=== PATIENT | female | born 1960 | race Hispanic/Latino ===

== ENCOUNTER 2017-09-30 10:00 | Outpatient (CLI) | payer MEDICARE ==
--- NOTE | 2017-09-30 12:24 | CT ---
CT CHEST WITH IV CONTRAST: Date: 09/30/17 HISTORY: Tobacco use, COPD, shortness of breath. Patient had tumor removed from esophagus in March 2017. FINDINGS: No evidence of mediastinal, hilar, or axillary mass or lymphadenopathy seen. The thoracic aorta is we ll opacified without aneurysm or dissection. No pleural or pericardial effusions are noted. No pulmon halle nodules or masses are seen. There are degenerative changes in the spine. There is prominence of the wall of the esophagus. Upper abdominal tomograms demonstrate a 1.2 cm righ t adrenal nodule. IMPRESSION: 1. Prominence/thickening of the esophageal wall. Evaluation with endoscopy would be helpful. 2. Indeterminate 12.0 mm right adrenal nodule. Dedicated CT scan of the abdomen with and without IV contrast using the adrenal protocol is recommended. POS: [facility]
[2017-09-30] MEDS ORDERED: Iopamidol 370 76% 100 ML VIAL ONE (14:26)
== END 2017-09-30 10:01 | disposition home or self-care (01) ==
LOC: CT 10:00
PROVIDERS: ATTEND Nurse Practitioner Family
DX: J44.9 Chronic obstructive pulmonary disease, unspecified (principal); K22.8 Other specified diseases of esophagus; Z72.0 Tobacco use
CPT/HCPCS: 71260

== ENCOUNTER 2017-10-21 11:25 | Outpatient (CLI) | payer MEDICARE | END 2017-10-21 11:26 | disposition home or self-care (01) | LOC: BICMAMMO 11:25 | PROVIDERS: ATTEND Nurse Practitioner Family | DX: Z12.31 Encounter for screening mammogram for malignant neoplasm of breast (principal); Z80.3 Family history of malignant neoplasm of breast | CPT/HCPCS: 77063; 77067 ==

== ENCOUNTER 2017-12-14 15:17 | Observation (INO) | payer MEDICARE ==
[~2017-12-14 15:17] MED LIST: ISOVUE-370 76%-LOCM 1 ML ONE
[2017-12-14] MEDS ORDERED: Ondansetron ODT 4 MG TAB ONE (15:38)
[2017-12-14] MEDS ORDERED: Morphine 4 MG/ML VIAL ONE (15:38)
[2017-12-14 15:45] LABS: Hemoglobin 13.3 g/dL (12.0-16.0); Mean Corpuscular HGB CONC 33.9 g/dL (32.0-36.0); Mean Corpuscular Hemoglobin 29.8 pg (27.0-31.0); Mean Corpuscular Volume 87.9 fl (81.0-99.0); Mean Platelet Volume 7.9 fL (7.4-10.4); Platelet Count 413 thou/uL (130-400); RBC Distribution Width 15.2 % (11.5-14.5); Red Blood Cell (RBC) Count 4.48 mill/uL (4.20-5.40); White Blood Cell (WBC) Count 22.4 thou/uL (4.8-10.8)
[2017-12-14 16:02] LABS: Anisocytosis SLIGHT = 6-15 cells (100X) (0-5/hpf); Band 7 % (5-11); Eosinophils 11 % (0-10); Lymphocytes 22 % (21-51); MDiff Complete? YES; Monocytes 3 % (0-10); Neutrophil 52 % (42-75); PLT Morphology Comment Appears Increased; Polychromasia SLIGHT = 2-3 cells (100X) (0-2/hpf); Reactive Lymphocytes 5 % (0-10)
[2017-12-14 16:04] LABS: BHCG - Serum Negative (NEGATIVE); Pregs Control Background? CLEAR/WHITE (CLR/WHITE); Pregs Control Bar Appear? YES (CONTROL BAR)
[2017-12-14 16:05] LABS: Anion Gap 12 mmol/L (10-20); BUN (Urea Nitrogen) 16 mg/dL (9.8-20.1); Calc. Creatinine Clearance 0 mL/min (70-130); Carbon Dioxide 29 mmol/L (22-29); Chloride 102 mmol/L (98-107); Estimated GFR-MDRD 59; Potassium 4.6 mmol/L (3.5-5.1); Sodium 138 mmol/L (136-145)
[2017-12-14 16:06] LABS: ALT (SGPT) 8 U/L (8-55); AST (SGOT) 10 U/L (5-34); Albumin 3.8 g/dL (3.5-5.0); Alkaline Phosphatase 46 U/L (40-150); Bilirubin, Total 0.3 mg/dL (0.2-1.2); Calcium 9.4 mg/dL (7.8-10.44); Globulin 3.1 g/dL (2.4-3.5); Glucose 116 mg/dL (70-105); Lipase 6 U/L (8-78); Protein, Total 6.9 g/dL (6.0-8.3)
[2017-12-14 16:08] LABS: CKMB 1.6 ng/mL (0-6.6); Troponin I Less than 0.010 ng/mL (< 0.028)
--- NOTE | 2017-12-14 16:19 | RAD ---
FRONTAL RADIOGRAPH OF CHEST PORTABLE UPRIGHT: Date: 12/14/17 COMPARISON: 05/18/13. HISTORY: Stomach pain and nausea. FINDINGS: There is mild diffuse increased linear interstitial density. Heart and mediastinal contours are unrem arkable. No pneumothorax, pleural fluid, focal consolidation, or alveolar edema. IMPRESSION: No acute findings. POS: [facility]
[2017-12-14] MEDS ORDERED: Bacitracin Zinc 1 Packet ONE (16:49)
--- NOTE | 2017-12-14 17:06 | CT ---
CT ABDOMEN AND PELVIS WITH IV CONTRAST: 12/14/2017 HISTORY: Sharp constant abdominal pain with diarrhea and nausea. Symptoms have been present for one week. COMPARISON: 08/08/2005 FINDINGS: There is a small, 1.5 cm nodule associated with the medial limb of the right adrenal gland, which can not be further characterized on this exam. This was not present on the prior study. The liver measu res 21 cm in craniocaudal dimensions, but otherwise has a normal CT appearance. The lung bases, liver, spleen, pancreas, left adrenal gland, and right kidney demonstrate a normal CT appearance. There is a 1.3 cm hypodense lesion in the mid portion of the left kidney, difficult to characterize, but probably represents a small cyst. Minimal vascular calcifications are seen in the abdominal aorta. The urinary bladder, uterus, and adnexal structures have a normal CT appearance. The appendix is visualized and normal in caliber. Loops of small bowel are normal in caliber. There is no free fluid, fluid collection, or lymphadenopathy seen in the abdomen or pelvis. Degenerative changes are noted in the spine. IMPRESSION: 1. Small right adrenal nodule, which cannot be further characterized on this nonenhanced CT scan exa m. A non-emergent CT abdomen without intravenous contrast is suggested for further evaluation, follo wing the adrenal mass protocol. 2. Small left renal cyst. 3. No CT evidence of appendicitis. 4. No acute findings are seen in the abdomen or pelvis. POS: [facility]
[2017-12-14 17:22] LABS: Bilirubin Negative (Negative); Blood, Urine Negative (Negative); Clarity CLEAR (Clear); Glucose, Urine (Dipstick) Negative (Negative); Leukocyte Small (Negative); Nitrite Negative (Negative); Protein, Urine (Dipstick) 100 mg/dL (Neg-Trace); pH, Urine 6.5 (5.0-9.0)
[2017-12-14 17:26] LABS: Bacteria/HPF None Seen HPF (None Seen); Hyaline Casts/LPF 0-3 HYALINE CAST LPF (0-3 Hyaline); RBC/HPF None Seen HPF (0-3); Squamous Epithelial None Seen HPF (0-3)
--- NOTE | 2017-12-14 17:42 | ULT ---
RIGHT UPPER QUADRANT ULTRASOUND: 12/14/2017 HISTORY: Right upper quadrant abdominal pain with nausea, vomiting, and diarrhea for one week. FINDINGS: The liver is enlarged in craniocaudal dimensions, measuring 23 cm; however, the liver otherwise demon strates a normal sonographic appearance. The visualized portions of the pancreas, the visualized portions of the IVC, and the right kidney dem onstrate a normal sonographic appearance. The right kidney measures 12 cm in length. There are several mobile, shadowing, echogenic foci seen within the dependent portion of the gallblad zenon lumen, most compatible with multiple small gallbladder calculi. There is no gallbladder wall thi ckening or pericholecystic fluid. The common duct measures 0.5 cm in diameter, which is within darlyn l limits. IMPRESSION: 1. Cholelithiasis. 2. Hepatomegaly. POS: [facility]
[2017-12-14] MEDS ORDERED: Dextrose 50% Abboject 50 ML SYRINGE SLOW IVP PRN (18:16)
[2017-12-14] MEDS ORDERED: HumaLOG 300 UNITS/3 ML VIAL SC PRN (18:16)
[2017-12-14] MEDS ORDERED: Ondansetron HCl/PF 4 MG/2 ML Vial IVP PRN (18:16)
[2017-12-14] MEDS ORDERED: Morphine 4 MG/ML VIAL SLOW IVP PRN (18:16)
[2017-12-14] MEDS ORDERED: Lorazepam 2 MG/ML VIAL SLOW IVP PRN (18:16)
[2017-12-14] MEDS ORDERED: Dextrose 5% in Water 1,000 ML IV PRN (18:16)
[2017-12-14] MEDS ORDERED: hydrALAZINE 20 MG/ML VIAL SLOW IVP PRN (18:16)
[2017-12-14] MEDS ORDERED: Ondansetron ODT 8 MG TAB SL PRN (18:20)
[2017-12-14] MEDS ORDERED: Ondansetron ODT 4 MG TAB PO PRN (18:20)
[2017-12-14] MEDS ORDERED: Ondansetron ODT 8 MG TAB PO PRN (18:20)
[2017-12-14] MEDS ORDERED: Ondansetron ORAL SOLN. 4 MG/5 ML UDCUP PO PRN ×2 (18:20)
[2017-12-14] MEDS ORDERED: Scopolamine 1.5 mg/72 hour Patch TD SCH (18:30)
[2017-12-14] MEDS ORDERED: Ondansetron HCl/PF 4 MG/2 ML Vial IVP SCH (18:30)
[2017-12-14] MEDS ORDERED: Non-Formulary Item 1 EACH (Albuterol Sulfate [Ventolin Hfa] 2 PUFF) INH PRN ×2 (18:39→19:08)
[2017-12-14] MEDS ORDERED: PROVENTIL INHALER 6.7 G (200 INHALATIONS) INH PRN (19:08)
--- NOTE | 2017-12-14 19:27 | HP ---
HISTORY OF PRESENT ILLNESS: Dulce Ghosh is a 57-year-old female, disabled, from [place], presents with several day history, almost a week, of right upper quadrant epigastric pain such that she has n ot been able to eat. She has been seen in the emergency room. CAT scan of the abdomen and pelvis an d ultrasound confirms gallstones and cholecystitis. Liver function tests are normal. Plan is admiss ion tonight, intravenous antibiotics, and plan laparoscopic cholecystectomy tomorrow. Risk of infect ion, bleeding, visceral or biliary injury explained and she consents. SOCIAL HISTORY: Tobacco one-quarter to one-half pack per day. She is trying to cut down and eventua lly quit smoking. Alcohol, none. ALLERGIES: IODINE and SHELLFISH. 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 This diagnosis was made b ased on the CAT scan of the chest on 09/30/2017, and endoscopy performed based on thickening of the d istal esophagus. Of note, is that she had on 05/18/2013, nuclear cardiac stress test that was unrema rkable with a normal EF. PAST MEDICAL HISTORY: Diabetes mellitus, hypertension, obesity. She has intentionally lost 120 poun ds and gained better control of her hemoglobin A1c. This is intentional weight loss based on lifesty le change. The patient is followed by Dr. Yanira Quinn. She is disabled and unemployed. MEDICATIONS: Metformin 1000 b.i.d., glyburide 10 mg b.i.d., lisinopril 40 mg a day, Prevacid 30 mg a day, inhalers as needed p.r.n., aspirin daily. PHYSICAL EXAMINATION: VITAL SIGNS: 145/75, respiratory rate 20, heart rate 82. HEAD, EARS, EYES, NOSE, AND THROAT: Unremarkable. Sclerae nonicteric. LYMPHATICS: Neck, groin, and axilla without lymphadenopathy. LUNGS: Clear to auscultation. Robotic scars in right chest laterally. EXTREMITIES: Unremarkable. ABDOMEN: Soft. Tenderness, guarding, positive Gregory sign. EXTREMITIES: Right adrenal nodule. NEUROLOGIC: Intact. Cranial nerves intact. LABORATORY AND DIAGNOSTIC STUDIES: Ultrasound: Multiple gallstones, normal bile duct caliber [address] scan of abdomen and pelvis: Cholecystitis, cholelithiasis, small left renal cyst, small right ad renal nodule. White count 22,000, hemoglobin 13. ASSESSMENT AND PLAN: 1. Acute cholecystitis and cholelithiasis, probably precipitated by precipitous intentional weight l oss. We would recommend hospitalization, intravenous antibiotics, and laparoscopic video cholecystec ruby tomorrow. Risk of infection, bleeding, visceral and biliary injury were explained. She consent s, questions answered. Clear liquids tonight, n.p.o. after midnight tonight, Levaquin IV 750 mg cristino y. 2. Tobacco use. 3. Diabetes mellitus. 4. Hypertension. 5. History of morbid obesity with intentional weight loss. 6. Status post resection of benign esophageal tumor in [place], [facility], thoracic, right, a month ago .
[2017-12-14 19:54] VITALS: BMI 38.5
[2017-12-14] MEDS: Lactated Ringer's 1,000 ML IV SCH (20:24)
[2017-12-14] MEDS: Morphine 4 MG/ML VIAL SLOW IVP PRN ×2 (20:24→22:30)
[2017-12-14] MEDS ORDERED: Enoxaparin Sodium 40 MG/0.4 ML SYRINGE SC SCH (21:00)
[2017-12-14] MEDS: Ondansetron ODT 4 MG TAB PO PRN (22:30)
[2017-12-14] MEDS: Ketorolac Tromethamine 30 MG/ML VIAL IVP SCH (23:58)
[2017-12-14] MEDS: Acetaminophen 1,000 MG in Premix Bag 1 BAG IVPB SCH (23:58)
[2017-12-15] MEDS: Lactated Ringer's 1,000 ML IV SCH ×2 (05:33→16:26)
[2017-12-15] MEDS: Acetaminophen 1,000 MG in Premix Bag 1 BAG IVPB SCH ×2 (05:34→12:15)
[2017-12-15] MEDS: Ketorolac Tromethamine 30 MG/ML VIAL IVP SCH ×2 (05:34→12:15)
[2017-12-15] MEDS ORDERED: Dextrose 5%-Lactated Ringers 1,000 ML IV SCH (06:45)
[2017-12-15] MEDS: Morphine 4 MG/ML VIAL SLOW IVP PRN ×2 (06:55→09:45)
[2017-12-15] MEDS: Ondansetron ODT 4 MG TAB PO PRN (06:57)
[2017-12-15] MEDS ORDERED: Non-Formulary Item 1 EACH (Lisinopril [Lisinopril] 40 MG) PO SCH (09:00)
[2017-12-15] MEDS ORDERED: Lisinopril 20 MG TAB PO SCH (09:00)
[2017-12-15] MEDS ORDERED: Non-Formulary Item 1 EACH (Lansoprazole [Prevacid] 30 MG) PO SCH (09:00)
[2017-12-15] MEDS ORDERED: PHENYLEPHRINE-NS 100 MCG/ML 10 ML SYRINGE ONE (12:07)
[2017-12-15] MEDS ORDERED: Glycopyrrolate 0.2 MG/ML 5 ML SYRINGE ONE (12:07)
[2017-12-15] MEDS ORDERED: Lidocaine 1% PF 5 ML VIAL ONE (12:07)
[2017-12-15] MEDS ORDERED: PROPOFOL 200 MG/20 ML VIAL ONE (12:07)
[2017-12-15] MEDS ORDERED: Fentanyl 100 MCG/2 ML VIAL ONE ×2 (13:31→14:39)
[2017-12-15] MEDS ORDERED: Morphine 4 MG/ML VIAL ONE (13:31)
[2017-12-15] MEDS ORDERED: Bupivacaine HCl 0.5%/Epinephrine 1:200,000/PF 30 ml Vial ONE (13:32)
[2017-12-15] MEDS ORDERED: Acetaminophen 500 MG TAB PO PRN (13:53)
[2017-12-15] MEDS ORDERED: traMADol HCl 50 MG TAB PO PRN ×2 (13:53)
[2017-12-15] MEDS ORDERED: Ibuprofen 600 MG TAB PO PRN (13:53)
[2017-12-15] MEDS ORDERED: Promethazine HCl 25 MG/ML VIAL SLOW IVP PRN (14:31)
[2017-12-15] MEDS ORDERED: Promethazine HCl 25 MG/ML VIAL IM PRN (14:31)
[2017-12-15] MEDS ORDERED: Ondansetron HCl/PF 4 MG/2 ML Vial IVP PRN (14:31)
[2017-12-15] MEDS ORDERED: Ketorolac Tromethamine 30 MG/ML VIAL ONE (14:39)
--- NOTE | 2017-12-15 15:14 | OP ---
DATE OF PROCEDURE: 12/15/2017 PREOPERATIVE DIAGNOSIS: Chronic cholecystitis, cholelithiasis. POSTOPERATIVE DIAGNOSIS: Chronic cholecystitis, cholelithiasis. PROCEDURE PERFORMED: Laparoscopic video cholecystectomy. SURGEON: Antione Lopez M.D. ANESTHESIA: General. Local 0.5% Marcaine with epinephrine 30 mL. PROCEDURE IN DETAIL: The patient was taken to the operating room. Under general anesthesia, abdomen was prepared with ChloraPrep, draped in routine fashion. A 0.5% Marcaine with epinephrine infiltrat ed into skin and subcutaneous tissue at each port site. Supraumbilical incision made. Pneumoperiton eum to 15 mmHg obtained with the Veress needle, replacing it with a 5 port, laparoscope inserted. Ri ght subxiphoid incision made and 11 port placed. Right subcostal incision made mid clavicular, anter ior axillary lines and 5 ports placed. Liver appeared to be normal. Fundus of the gallbladder grasp ed, lifted cephalad. Infundibulum grasped, reflected laterally. Cystic artery and duct dissected fr ee. Critical view obtained. Cystic artery and duct doubly clipped proximally, divided, and gallblad zenon dissected free from liver bed obtaining good hemostasis prior to division of final peritoneal att achments. Gallbladder and contents removed and submitted to Pathology. Good hemostasis obtained wit h the cautery. Good hemostasis ensured. Irrigant and pneumoperitoneum evacuated. All this instrume nts removed and all skin incisions approximated with interrupted subdermal 4-0 Monocryl and DermaGlue applied.
[2017-12-15 16:05] VITALS: BP 148/77; TEMP 97.9
--- NOTE | 2017-12-15 18:06 | DIS ---
DATE OF ADMISSION: 12/14/2017 DATE OF DISCHARGE: 12/15/2017 DISCHARGE DIAGNOSES: Acute chronic cholecystitis and cholelithiasis. 120 pound intentional weight l oss, improving diabetic control, decrease in hemoglobin A1c from 13 to 5, hypertension. PROCEDURES: Ultrasound of gallbladder, laparoscopic video cholecystectomy. HISTORY: A 57-year-old female, intentional weight loss, has had intermittent epigastric pain, presen raphael to emergency room with a severe episode. Ultrasound demonstrated cholelithiasis, [facility], underwent laparoscopic video cholecystectomy after which she was dis charged home to resume diet and activity as tolerated. No lifting restrictions. Follow up in [place] in 2-3 weeks. Tylenol, Motrin and p.r.n. Ultram [id number], resume her home medications.
[2017-12-16] MEDS ORDERED: Polyethylene Glycol 3350 17 GM Packet PO SCH (09:00)
== END 2017-12-15 19:00 | disposition home or self-care (01) ==
LOC: ERS 15:17 → SURG A 19:47
PROVIDERS: ADMIT Specialist; ATTEND Specialist
PROC: 0FT44ZZ Resection of Gallbladder, Percutaneous Endoscopic Approach (ICD-10-PCS; principal; 2017-12-14)
DX: K80.10 Calculus of gallbladder with chronic cholecystitis without obstruction (principal); E11.9 Type 2 diabetes mellitus without complications; I10 Essential (primary) hypertension; F17.210 Nicotine dependence, cigarettes, uncomplicated; E66.9 Obesity, unspecified; Z91.013 Allergy to seafood; Z88.8 Allergy status to other drugs, medicaments and biological substances; Z79.82 Long term (current) use of aspirin; Z79.84 Long term (current) use of oral hypoglycemic drugs; Z79.899 Other long term (current) drug therapy; Z98.890 Other specified postprocedural states
CPT/HCPCS: 36416; 71045; 74177; 76705; 80053; 81003; 81015; 82553; 83690; 84484; 84703; 85025; 88304; 93005; 94640; 96374; J0131; J0670; J1650; J1885; J1956; J2001; J2270; J2704; J3010; J7620; Q0162

== ENCOUNTER 2018-05-10 11:32 | Emergency (ER) | payer MEDICARE ==
[2018-05-10 12:27] LABS: #Basophils 0.1 thou/uL (0.0-0.2); #Eosinphils 0.3 thou/uL (0.0-0.7); #Lymphocytes 3.4 thou/uL (1.20-3.40); #Monocytes 0.8 thou/uL (0.11-0.59); #Neutrophils 6.4 thou/uL (1.40-6.50); %Basophils 0.9 % (0.0-1.0); %Eosinophils 2.7 % (0.0-10.0); %Lymphocytes 30.6 % (21.0-51.0); %Monocytes 7.1 % (0.0-10.0); %Neutrophils 58.7 % (42.0-75.0); Hemoglobin 11.3 g/dL (12.0-16.0); Mean Corpuscular HGB CONC 32.5 g/dL (32.0-36.0); Mean Corpuscular Hemoglobin 28.5 pg (27.0-31.0); Mean Corpuscular Volume 87.9 fL (78.0-98.0); Mean Platelet Volume 8.1 fL (7.4-10.4); Platelet Count 413 thou/uL (130-400); RBC Distribution Width 14.2 % (11.5-14.5); Red Blood Cell (RBC) Count 3.97 mill/uL (4.20-5.40)
[2018-05-10 12:30] LABS: Bilirubin Negative (Negative); Blood, Urine Negative (Negative); Clarity CLEAR (Clear); Glucose, Urine (Dipstick) Negative (Negative); Leukocyte Negative (Negative); Nitrite Negative (Negative); Protein, Urine (Dipstick) 100 mg/dL (Neg-Trace); Urobilinogen 0.2 mg/dL (0.2-1.0)
[2018-05-10 12:31] LABS: Bacteria/HPF None Seen HPF (None Seen); Hyaline Casts/LPF 0-3 HYALINE CAST LPF (0-3 Hyaline); RBC/HPF 0-3 HPF (0-3); Squamous Epithelial None Seen HPF (0-3); WBC/HPF None Seen HPF (0-3)
[2018-05-10 12:34] LABS: Specific Gravity, Urine 1.003 (1.002-1.036)
[2018-05-10 12:52] LABS: ALT (SGPT) 13 U/L (8-55); AST (SGOT) 10 U/L (5-34); Albumin 3.8 g/dL (3.5-5.0); Alkaline Phosphatase 114 U/L (40-150); Anion Gap 17 mmol/L (10-20); BUN (Urea Nitrogen) 15 mg/dL (9.8-20.1); Bilirubin, Total 0.4 mg/dL (0.2-1.2); Calc. Creatinine Clearance 0 mL/min (70-130); Calcium 9.3 mg/dL (7.8-10.44); Carbon Dioxide 23 mmol/L (22-29); Chloride 102 mmol/L (98-107); Estimated GFR-MDRD 78; Globulin 3.8 g/dL (2.4-3.5); Glucose 141 mg/dL (70-105); Lipase 42 U/L (8-78); Potassium 3.9 mmol/L (3.5-5.1); Protein, Total 7.6 g/dL (6.0-8.3); Sodium 138 mmol/L (136-145)
[2018-05-10 13:22] LABS: CKMB 1.5 ng/mL (0-6.6); Troponin I Less than 0.010 ng/mL (< 0.028)
[2018-05-10] MEDS ORDERED: Fentanyl 100 MCG/2 ML VIAL ONE (14:37)
[2018-05-10] MEDS ORDERED: ISOVUE-370 76%-LOCM 1 ML ONE (14:41)
--- NOTE | 2018-05-10 14:54 | CT ---
CT OF THE ABDOMEN AND PELVIS WITH IV CONTRAST: DATE: 05/10/18. PROVIDED CLINICAL HISTORY: Abdominal pain. FINDINGS: Comparison is made with the examination dated 12/14/17. The visualized lung bases are free of signifi cant opacity. The solid abdominal organs demonstrate a stable CT appearance. There is no bowel dila tation, inflammatory fat stranding, free fluid, or free air apparent. Changes of prior cholecystecto my are seen. There is moderate chronic fecal retention that may reflect constipation. Scattered vas cular calcifications are seen. The osseous structures demonstrate no concerning lytic or blastic lesions. Lumbar spine degenerative changes are seen. IMPRESSION: No evidence for an acute process. POS: [facility]
[2018-05-10] MEDS ORDERED: Ketorolac Tromethamine 30 MG/ML VIAL ONE (14:58)
[2018-05-10] MEDS ORDERED: HYDROcodone/Acetaminophen 5/325 mg Tablet ONE (16:16)
--- NOTE | 2018-05-16 11:19 | EKG ---
Test Reason : Blood Pressure : / mmHG Vent. Rate : 085 BPM Atrial Rate : 085 BPM P-R Int : 162 ms QRS Dur : 090 ms QT Int : 382 ms P-R-T Axes : 059 -21 066 degrees QTc Int : 454 ms Sinus rhythm with Premature atrial complexes Minimal voltage criteria for LVH, may be normal variant Borderline ECG Confirmed by MARIELENA MÉNDEZ M.D. ([id number]), editor managing director SEVERO BLANCHARD ([id number]) on 05/16/2018 11:18:42 AM Referred By: Confirmed By:MARIELENA MÉNDEZ M.D.
== END 2018-05-10 16:39 | disposition home or self-care (01) ==
LOC: ERS 11:32
DX: R10.11 Right upper quadrant pain (principal); E11.9 Type 2 diabetes mellitus without complications; I10 Essential (primary) hypertension; F32.9 Major depressive disorder, single episode, unspecified; F41.9 Anxiety disorder, unspecified; F17.210 Nicotine dependence, cigarettes, uncomplicated; Z79.899 Other long term (current) drug therapy; Z79.82 Long term (current) use of aspirin
CPT/HCPCS: 74177; 80053; 81003; 81015; 82553; 83690; 84484; 85025; 93005; 94640; 96361; 96374; 96375; J1885; J2270; J3010; J7620

== ENCOUNTER 2018-05-12 11:25 | Outpatient (CLI) | payer MEDICARE ==
--- NOTE | 2018-05-12 13:34 | RAD ---
ACUTE ABDOMINAL SERIES: 05/12/2018 HISTORY: Abdominal pain. COMPARISON: 12/14/2017 FINDINGS: CHEST: The cardiac silhouette is magnified by projection. The pulmonary vasculature is similar to t he prior study. The lungs are clear. No free intraperitoneal gas is seen beneath the hemidiaphragms . Multilevel degenerative changes are seen in the spine. ABDOMEN: Upright and supine views of the abdomen show surgical clips overlying the right upper quadr ant. There is a small to moderate amount of retained fecal material seen throughout the colon. Vasc ular calcifications overly the pelvis with associated phleboliths. No definite suspicious calcificat ions are seen. Degenerative changes are noted in the spine. IMPRESSION: Constipation but otherwise nonspecific bowel gas pattern. POS: [facility]
--- NOTE | 2018-05-12 13:35 | RAD ---
LUMBAR SPINE SERIES THREE VIEWS: HISTORY: Back pain. FINDINGS: Vertebral bodies are normal in height. Degenerative disk narrowing is seen at L3-L4, L4-L5, and L5-S 1, with vacuum disk phenomenon. Degenerative facet changes are noted. Pedicles are intact. IMPRESSION: Marked arthritic changes of the spine. POS: [facility]
== END 2018-05-12 11:26 | disposition home or self-care (01) ==
LOC: RAD-FRANK 11:25
PROVIDERS: ATTEND Nurse Practitioner Family
DX: R10.9 Unspecified abdominal pain (principal); G62.9 Polyneuropathy, unspecified; E11.65 Type 2 diabetes mellitus with hyperglycemia; K21.9 Gastro-esophageal reflux disease without esophagitis; E78.5 Hyperlipidemia, unspecified; J44.9 Chronic obstructive pulmonary disease, unspecified; F33.0 Major depressive disorder, recurrent, mild; I10 Essential (primary) hypertension; K22.4 Dyskinesia of esophagus; M15.0 Primary generalized (osteo)arthritis; R76.8 Other specified abnormal immunological findings in serum; M46.96 Unspecified inflammatory spondylopathy, lumbar region; K59.00 Constipation, unspecified; Z68.38 Body mass index [BMI] 38.0-38.9, adult; Z90.49 Acquired absence of other specified parts of digestive tract; Z87.898 Personal history of other specified conditions
CPT/HCPCS: 36415; 72100; 74022; 80053; 83036; 83880; 85025; 87086

== ENCOUNTER 2018-05-22 07:56 | Outpatient (CLI) | payer MEDICARE ==
--- NOTE | 2018-05-22 08:55 | ULT ---
ABDOMINAL AORTIC ULTRASOUND: Comparison: CT abdomen/pelvis, 05-10-18 History: Abdominal pain and screening for abdominal aortic aneurysm. Technique: Multiplanar grayscale and color doppler images were obtained in a limited ultrasound of [facility] abdominal aorta. FINDINGS: The aorta is normal in caliber without aneurysmal dilatation or dissection. The aorta measures 2.3 cm in greatest dimension along the midportion. The common iliac arteries are normal in caliber. IMPRESSION: No evidence of abdominal aortic aneurysm. POS: [facility]
== END 2018-05-22 07:57 | disposition home or self-care (01) ==
LOC: BICULT 07:56
PROVIDERS: ATTEND Nurse Practitioner Family
DX: R10.9 Unspecified abdominal pain (principal); E11.65 Type 2 diabetes mellitus with hyperglycemia; I10 Essential (primary) hypertension; Z90.49 Acquired absence of other specified parts of digestive tract
CPT/HCPCS: 76775

== ENCOUNTER 2018-08-28 13:04 | Emergency (ER) | payer MEDICARE, OTHER ==
--- NOTE | 2018-08-28 15:47 | RAD ---
RIGHT KNEE FOUR VIEWS: HISTORY: Right knee pain. COMPARISON: 09/24/2011 FINDINGS: Interval worsening of degenerative changes is seen. No fracture, dislocation, or bony destruction is identified. There is fullness in the suprapatellar pouch, suspicious for a joint effusion. IMPRESSION: Right knee osteoarthritis. POS: [facility]
--- NOTE | 2018-08-28 16:18 | RAD ---
CHEST ONE VIEW: HISTORY: Cough. COMPARISON: 12/14/2017 FINDINGS: Normal cardiac silhouette. Pulmonary vessels and hilum are normal. Costophrenic angles are clear. Persistent opacification in the lung bases. There is no pneumothorax or osseous abnormalities. IMPRESSION: Persistent bibasilar opacities. Given chronicity, further evaluation with non-emergent chest CT is r ecommended. Correlation made with an abdomen and pelvis CT from 05/10/2018 does not demonstrate any significant opacities. Pulverizing And Sifting Operator tomogram on that study suggests the lung bases are relatively clear. POS: [facility]
[2018-08-28 16:54] LABS: #Basophils 0.1 thou/uL (0.0-0.2); #Eosinphils 0.2 thou/uL (0.0-0.7); #Lymphocytes 4.4 thou/uL (1.20-3.40); #Monocytes 0.9 thou/uL (0.11-0.59); %Basophils 0.7 % (0.0-1.0); %Eosinophils 1.7 % (0.0-10.0); %Lymphocytes 34.8 % (21.0-51.0); %Monocytes 7.4 % (0.0-10.0); %Neutrophils 55.4 % (42.0-75.0); Hemoglobin 12.1 g/dL (12.0-16.0); Mean Corpuscular HGB CONC 31.6 g/dL (32.0-36.0); Mean Corpuscular Hemoglobin 27.1 pg (27.0-31.0); Mean Corpuscular Volume 85.9 fL (78.0-98.0); Mean Platelet Volume 8.4 fL (7.4-10.4); Platelet Count 403 thou/uL (130-400); RBC Distribution Width 15.5 % (11.5-14.5); Red Blood Cell (RBC) Count 4.45 mill/uL (4.20-5.40); White Blood Cell (WBC) Count 12.6 thou/uL (4.8-10.8)
[2018-08-28 17:27] LABS: ALT (SGPT) 11 U/L (8-55); AST (SGOT) 10 U/L (5-34); Albumin 3.7 g/dL (3.5-5.0); Alkaline Phosphatase 110 U/L (40-150); Anion Gap 14 mmol/L (10-20); BUN (Urea Nitrogen) 17 mg/dL (9.8-20.1); Bilirubin, Total 0.2 mg/dL (0.2-1.2); CK (CPK) 65 U/L (29-168); Calc. Creatinine Clearance 0 mL/min (70-130); Calcium 9.1 mg/dL (7.8-10.44); Carbon Dioxide 26 mmol/L (22-29); Chloride 104 mmol/L (98-107); Estimated GFR-MDRD 64; Globulin 3.3 g/dL (2.4-3.5); Glucose 88 mg/dL (70-105); Potassium 4.5 mmol/L (3.5-5.1); Sodium 139 mmol/L (136-145)
== END 2018-08-28 17:55 | disposition home or self-care (01) ==
LOC: ERS 13:04
DX: M17.11 Unilateral primary osteoarthritis, right knee (principal); J18.9 Pneumonia, unspecified organism; E11.9 Type 2 diabetes mellitus without complications; I10 Essential (primary) hypertension; F41.9 Anxiety disorder, unspecified; F32.9 Major depressive disorder, single episode, unspecified; F17.210 Nicotine dependence, cigarettes, uncomplicated; Z79.82 Long term (current) use of aspirin; Z79.84 Long term (current) use of oral hypoglycemic drugs; Z79.899 Other long term (current) drug therapy; Z79.891 Long term (current) use of opiate analgesic
CPT/HCPCS: 36415; 71045; 80053; 82550; 83880; 84484; 85025; 93005

== ENCOUNTER 2018-09-30 15:54 | Emergency (ER) | payer MEDICARE, OTHER ==
[2018-09-30 17:52] LABS: ALT (SGPT) 12 U/L (8-55); AST (SGOT) 14 U/L (5-34); Albumin 3.3 g/dL (3.5-5.0); Alkaline Phosphatase 85 U/L (40-150); Anion Gap 13 mmol/L (10-20); BUN (Urea Nitrogen) 21 mg/dL (9.8-20.1); Bilirubin, Total 0.3 mg/dL (0.2-1.2); Calc. Creatinine Clearance 0 mL/min (70-130); Calcium 8.8 mg/dL (7.8-10.44); Carbon Dioxide 24 mmol/L (22-29); Chloride 106 mmol/L (98-107); Estimated GFR-MDRD 62; Globulin 3.2 g/dL (2.4-3.5); Glucose 85 mg/dL (70-105); Potassium 4.7 mmol/L (3.5-5.1); Protein, Total 6.5 g/dL (6.0-8.3); Sodium 138 mmol/L (136-145)
[2018-09-30 17:55] LABS: #Eosinphils 0.3 thou/uL (0.0-0.7); #Lymphocytes 3.1 thou/uL (1.20-3.40); #Monocytes 1.2 thou/uL (0.11-0.59); #Neutrophils 10.1 thou/uL (1.40-6.50); %Basophils 0.1 % (0.0-1.0); %Eosinophils 1.8 % (0.0-10.0); %Monocytes 7.9 % (0.0-10.0); %Neutrophils 69.2 % (42.0-75.0); Hemoglobin 11.6 g/dL (12.0-16.0); Mean Corpuscular HGB CONC 31.2 g/dL (32.0-36.0); Mean Corpuscular Hemoglobin 27.4 pg (27.0-31.0); Mean Corpuscular Volume 87.8 fL (78.0-98.0); Mean Platelet Volume 8.8 fL (7.4-10.4); Platelet Count 358 thou/uL (130-400); RBC Distribution Width 16.4 % (11.5-14.5); Red Blood Cell (RBC) Count 4.25 mill/uL (4.20-5.40); White Blood Cell (WBC) Count 14.6 thou/uL (4.8-10.8)
[2018-09-30] MEDS ORDERED: Acetaminophen 500 MG TAB ONE (18:47)
--- NOTE | 2018-09-30 19:13 | CT ---
CONTRAST ENHANCED CT IMAGES SOFT TISSUE NECK 09/30/18 Patient with tumor in the esophagus in March. Patient fells like there is a foreign body in the back of her throat. Contrast enhanced CT of the soft tissue neck demonstrates no definite evidence of pharyngeal mucosal masses or lesions. No significant lymphadenopathy seen. the parotid glands are symmetric. No significant evidence of proximal esophageal abnormality seen. IMPRESSION: Normal CT soft tissue neck. POS: [facility]
--- NOTE | 2018-09-30 19:20 | ULT ---
RIGHT UPPER QUADRANT ULTRASOUND: 09/30/18 HISTORY: Abdominal pain. Multiple longitudinal and transverse images of the right upper quadrant of the abdomen is obtained us ing a multihertz curvilinear transducer. Real time, color flow and spectral waveform doppler analysis demonstrates the patient to have hepatomegaly. The liver measures 25 cm in mid clavicular line. No d efinite evidence of hepatic parenchymal mass is seen. The gallbladder has been surgically removed. No evidence of intrahepatic biliary dilatation is seen. The common bile duct is of normal size measuring 4 mm. The visualized portions of the pancreas is unremarkable. The gallbladder has been surgically removed. The right kidney is unremarkable measuring 11.0 cm from pole to pole. No evidence of hydronephrosis s een. Normal hepatopedal flow is seen in the portal system. IMPRESSION: Hepatomegaly. POS: [facility]
== END 2018-09-30 19:45 | disposition home or self-care (01) ==
LOC: ERS 15:54
DX: R13.10 Dysphagia, unspecified (principal); E11.9 Type 2 diabetes mellitus without complications; I10 Essential (primary) hypertension; F41.9 Anxiety disorder, unspecified; F32.9 Major depressive disorder, single episode, unspecified; F17.210 Nicotine dependence, cigarettes, uncomplicated; Z79.82 Long term (current) use of aspirin; Z79.84 Long term (current) use of oral hypoglycemic drugs; Z79.51 Long term (current) use of inhaled steroids; Z79.899 Other long term (current) drug therapy
CPT/HCPCS: 36415; 70491; 76705; 80053; 80061; 82043; 83036; 83690; 84443; 85025; 87081; 87430; Q9966

== ENCOUNTER 2018-10-01 14:35 | Outpatient (CLI) | payer MEDICARE ==
--- NOTE | 2018-10-01 15:15 | RAD ---
CHEST TWO VIEWS: History: Cough. Comparison: 09-14-13 FINDINGS: Cardiac silhouette and pulmonary vasculature are both prominent. Mediastinum is midline. No confluent air space consolidation, pneumothorax or pleural fluid. IMPRESSION: Mild cardiomegaly and pulmonary vascular congestion. Clinical correlation regarding other signs and s ymptoms of borderline CHF is required. POS: [facility]
== END 2018-10-01 14:36 | disposition home or self-care (01) ==
LOC: RAD-FRANK 14:35
PROVIDERS: ATTEND Nurse Practitioner Family
DX: R05 Cough (principal); D72.828 Other elevated white blood cell count; I51.7 Cardiomegaly; R09.89 Other specified symptoms and signs involving the circulatory and respiratory systems
CPT/HCPCS: 71046

== ENCOUNTER 2018-10-16 15:34 | Observation (INO) | payer MEDICARE ==
--- NOTE | 2018-10-16 16:02 | RAD ---
TWO VIEW CHEST: 10/16/18 INDICATION: New onset chest pain. COMPARISON: 10/01/18. FINDINGS: There is bilateral perihilar patchy opacification. Elevation of the lateral right hemidiaphragm is se en. No significant effusion or discrete pneumothorax. The cardiac silhouette is mildly enlarged. IMPRESSION: Enlarged cardiac silhouette with prominent bilateral perihilar regions which may be related to CHF wi th vascular congestion. Correlate clinically, and as necessary imaging followup may be obtained. POS: [facility]
[2018-10-16 16:05] LABS: #Basophils 0.1 thou/uL (0.0-0.2); #Eosinphils 0.3 thou/uL (0.0-0.7); #Monocytes 1.1 thou/uL (0.11-0.59); #Neutrophils 8.3 thou/uL (1.40-6.50); %Basophils 1.1 % (0.0-1.0); %Lymphocytes 23.7 % (21.0-51.0); %Monocytes 8.5 % (0.0-10.0); %Neutrophils 64.8 % (42.0-75.0); Hemoglobin 11.7 g/dL (12.0-16.0); Mean Corpuscular HGB CONC 31.8 g/dL (32.0-36.0); Mean Corpuscular Volume 88.2 fL (78.0-98.0); Mean Platelet Volume 8.3 fL (7.4-10.4); Platelet Count 372 thou/uL (130-400); RBC Distribution Width 16.1 % (11.5-14.5); Red Blood Cell (RBC) Count 4.19 mill/uL (4.20-5.40); White Blood Cell (WBC) Count 12.8 thou/uL (4.8-10.8)
[2018-10-16 16:37] LABS: ALT (SGPT) 14 U/L (8-55); AST (SGOT) 12 U/L (5-34); Albumin 3.8 g/dL (3.5-5.0); Alkaline Phosphatase 114 U/L (40-150); Anion Gap 14 mmol/L (10-20); BUN (Urea Nitrogen) 15 mg/dL (9.8-20.1); Bilirubin, Total 0.4 mg/dL (0.2-1.2); CK (CPK) 71 U/L (29-168); Calc. Creatinine Clearance 0 mL/min (70-130); Calcium 9.7 mg/dL (7.8-10.44); Carbon Dioxide 26 mmol/L (22-29); Chloride 100 mmol/L (98-107); Estimated GFR-MDRD 63; Globulin 3.4 g/dL (2.4-3.5); Glucose 184 mg/dL (70-105); Potassium 4.1 mmol/L (3.5-5.1); Protein, Total 7.2 g/dL (6.0-8.3); Sodium 136 mmol/L (136-145)
[2018-10-16] MEDS ORDERED: ISOVUE-370 76%-LOCM 1 ML ONE (16:43)
[2018-10-16] MEDS ORDERED: Ondansetron PF 4 MG/2 ML Vial ONE (17:54)
[2018-10-16] MEDS ORDERED: Morphine 4 MG/ML VIAL ONE (17:55)
[2018-10-16 18:25] LABS: Bilirubin Negative (Negative); Blood, Urine Negative (Negative); Clarity CLEAR (Clear); Glucose, Urine (Dipstick) Negative (Negative); Leukocyte Negative (Negative); Nitrite Negative (Negative); Protein, Urine (Dipstick) 300 mg/dL (Neg-Trace); Specific Gravity, Urine 1.008 (1.002-1.036); pH, Urine 6.5 (5.0-9.0)
[2018-10-16 18:27] LABS: Bacteria/HPF None Seen HPF (None Seen); Hyaline Casts/LPF 0-3 HYALINE CAST LPF (0-3 Hyaline); Pathc Cast-AUWi Flag 0.14 (0-2.49); Squamous Epithelial None Seen HPF (0-3); WBC/HPF 0-3 HPF (0-3)
[2018-10-16] MEDS ORDERED: Aspirin Chewable 81 MG TAB ONE (19:56)
[2018-10-16] MEDS ORDERED: Famotidine/PF 20 mg/2ml Vial ONE (19:56)
--- NOTE | 2018-10-16 20:29 | CT ---
CT ANGIOGRAM OF THE CHEST 10/16/18 HISTORY: Chest pain, x2 days. COMPARISON: None. TECHNIQUE: CT angiogram of the chest is performed in the axial plane. Three dimensional reformatted images are s ubmitted for interpretation. FINDINGS: There is no mediastinal mass, lymphadenopathy or hematoma. Heart size is normal. No pericardial effus ion. The visualized aorta has a normal caliber. No periaortic fat stranding. There are nonspecific mildly enlarged gastrohepatic lymph nodes. There also appear to be enlarged per iportal lymph nodes measuring 3.3 x 1.1 cm. Lymphadenopathy is unchanged from examination from r 2018. Gallbladder is surgically absent. Indeterminate nodule in the right adrenal gland No lytic or blastic lesions in the osseous structures. Patchy ground glass opacities in the lung parenchyma. Atelectatic changes in both lower lobes. No mas ses or consolidation. No significant pleural fluid or pneumothorax. Nonspecific air fluid level in the visualized esophagus. Adequate contrast opacification of the pulmonary arterial system at the level of the segmental arteri es. No filling defect to suggest thromboembolism. IMPRESSION: 1. No evidence of pulmonary arterial embolism to the level of the segmental arteries. 2. Nonspecific air fluid level in the visualized esophagus. Nonemergent endoscopy can be perform ed. 3. Nonspecific gastrohepatic and periportal lymph nodes. Lymph nodes are slightly prominent in t he periportal region. Correlate clinically. 4. Indeterminate right adrenal nodule. POS: [facility]
[2018-10-16] MEDS ORDERED: PROVENTIL INHALER 6.7 G (200 INHALATIONS) INH PRN (21:56)
[2018-10-16] MEDS ORDERED: Ondansetron ODT 4 MG TAB PO PRN (21:57)
[2018-10-16] MEDS ORDERED: Ondansetron PF 4 MG/2 ML Vial IVP PRN (21:57)
--- NOTE | 2018-10-16 23:25 | ULT ---
ULTRASOUND ABDOMEN LIMITED: 10/16/18 HISTORY: Right upper quadrant pain. Cholecystectomy. COMPARISON: CT of the chest the same day. TECHNIQUE: Real time taylor scale and color evaluation of the right upper quadrant of the abdomen was performed. FINDINGS: The visualized portions of the pancreas is unremarkable. Diffuse increased hepatic echotexture sugges ting steatosis. Prior cholecystectomy. No significant fluid in the gallbladder fossa. Common bile duct is normal erik uring 4 mm. portal vein patent with antegrade flow. Right kidney measures 11.7 x 5.4 x 6.5 cm without mass, hydronephrosis or abnormal calcifications. IMPRESSION: Hepatic steatosis. No significant fluid in the gallbladder fossa. POS: [facility]
[2018-10-17 00:05] VITALS: BMI 45.0
[2018-10-17] MEDS: Acetaminophen 325 MG TAB PO PRN ×3 (00:13→13:47)
--- NOTE | 2018-10-17 01:28 | HP ---
PRIMARY CARE PHYSICIAN: Yanira Quinn, MEDICAL OBSERVER-C CHIEF COMPLAINT: Chest pain. HISTORY OF PRESENT ILLNESS: Mrs. Ghosh is a pleasant 58-year-old female with past medical history of hypertension, diabetes mellitus, and tobacco abuse, who presented to [facility] with chest pain. She had reported that pain feels like someone sitting on her chest. She had a past history of a laparoscopic cholecystectomy back in November [address] Lopez. She states that she has also been having some right-sided upper quadrant pain over the last 2 months that has been ongoing. She states that she has been getting nauseous with no vomiting since. During her initial workup in the emergency department, white count was elevated at 12.8 with no further signs of an infectious process at this time. She denies fever or chills, denies coughing. Her troponin is less than 0.010 x2. Creatinine is stable at 0.92, estimated GFR of 63. Urinalysis is unremarkable. The patient remains in sinus rhythm on the monitor. The patient was given a dose of IV Pepcid 20 mg and aspirin oral. She was also started on IV fluid hydration with a L of normal saline and 4 mg of Zofran. She was given a DuoNeb treatment due to the patient complaining of some mild shortness of breath, which had resolved status post treatment. For pain, she was treated with IV morphine 2 mg. It was determined that the patient will be brought in for chest pain rule out and she will be placed in telemetry under observation. REVIEW OF SYSTEMS: All other systems reviewed and found to be negative unless mentioned in the HPI. PAST MEDICAL HISTORY: Diabetes mellitus, hypertension, obesity. PAST SURGICAL HISTORY: Trigger fingers, carpal tunnel, robotic resection of benign esophageal tumor, laparoscopic cholecystectomy. SOCIAL HISTORY: The patient smokes about a half pack of cigarettes per day. She denies any alcohol or illicit drug use. ALLERGIES: SHELLFISH, SHE STATES THAT SHE IS UNABLE TO TAKE PREDNISONE IT WILL INCREASE HER BLOOD SUGAR. HOME MEDICATIONS: 1. Aspirin 81 mg daily. 2. Metformin 500 mg oral twice daily. 3. Glimepiride 2 mg oral once daily. 4. Lisinopril 10 mg oral twice daily. 5. Simvastatin 10 mg oral once daily. 6. Protonix 20 mg oral once daily. 7. Ventolin inhaler every 4 hours as needed for shortness of breath. 8. Symbicort 160 mcg/4.5 mcg actuation 2 times a day. 9. Victoza 1.8 mg twice daily. 10. Albuterol sulfate nebulizer every 6 hours as needed for shortness of breath. 11. Acetaminophen-codeine No. 3 one to two tabs every 4 hours as needed for pain. PHYSICAL EXAMINATION: VITAL SIGNS: BP 117/66, pulse 86, respirations 18, O2 saturations 96% on room air, temperature 98.1 degrees Fahrenheit. GENERAL: The patient is awake, alert, and oriented x3. Mild acute distress noted due to pain. HEENT: Atraumatic, normocephalic. Pupils are round and reactive to light. Extraocular muscles intact. Moist mucous membranes noted. NECK: Soft and supple. No JVD noted. CARDIOVASCULAR: Positive S1 and S2. Regular rate and rhythm. No murmur auscultated. RESPIRATORY: Clear to auscultation bilaterally. No wheezes, rales, or rhonchi. ABDOMEN: Soft. Swyc-ut-npemjejq tenderness in right upper quadrant. No rebound. No rigidity. Bowel sounds present. MUSCULOSKELETAL: Strength 5+ bilaterally upper and lower extremities. Moves all extremities equal. No edema noted. NEUROLOGIC: Cranial nerves II through XII grossly intact. No focal deficits noted. Speech intact and normal. Gait not assessed. PSYCHIATRIC: Good mood and affect. LABORATORY DATA: WBC 12.8, RBC 4.19, hemoglobin 13.7, platelets 372. Sodium 136, potassium 4.1, carbon dioxide 26, anion gap 14, BUN 15, creatinine 0.92, estimated GFR 63, glucose 183. AST 12, ALT 14, alkaline phosphatase 114, creatine kinase 71. Troponin less than 0.010 x2. BNP 15.2. Urinalysis showed 300 protein, which appears to be her baseline, otherwise unremarkable. DIAGNOSTIC IMAGING: Chest x-ray showed enlarged cardiac silhouette with prominent bilateral perihilar regions, which may be related to CHF with vascular congestion. CTA of chest showed no evidence of pulmonary arterial embolism, however, did show nonspecific air fluid levels in the visualized esophagus with non emergent endoscopy can be performed. ASSESSMENT AND PLAN: 1. Chest pain, we will rule out cardiac etiology with stress test and echocardiogram. The patient had an unremarkable cardiac stress test back in 2012, however, has not had any further cardiac workup since. So far, cardiac biomarkers are normal and less than 0.010 x2. We will trend out. 2. Hypertension. Continue on patient's home regimen and monitor vital signs closely. 3. Diabetes mellitus. Continue the patient's home regimen. Placed on diabetic diet and start sliding scale insulin with Accu-Cheks. 4. Leukocytosis, recheck CBC in a.m. The patient is currently asymptomatic for any further infectious like cause, monitor the patient's symptoms closely. 5. Tobacco abuse. Strongly recommended smoking cessation, while the patient is in the hospital will be placed on nicotine patch. 6. Morbid obesity, stable. 7. Right upper quadrant pain, the patient has a history of laparoscopic cholecystectomy. We will check ultrasound of her abdomen to rule out other causes. 8. Deep venous thrombosis and gastrointestinal prophylaxis. 9. Code status, full code. DISPOSITION: Pending further workup and clinical findings. Job ID: [id number]
[2018-10-17 05:19] LABS: #Basophils 0.1 thou/uL (0.0-0.2); #Eosinphils 0.3 thou/uL (0.0-0.7); #Lymphocytes 3.7 thou/uL (1.20-3.40); #Monocytes 1.4 thou/uL (0.11-0.59); #Neutrophils 7.2 thou/uL (1.40-6.50); %Basophils 1.1 % (0.0-1.0); %Eosinophils 2.4 % (0.0-10.0); %Lymphocytes 29.2 % (21.0-51.0); %Neutrophils 56.2 % (42.0-75.0); Hemoglobin 10.5 g/dL (12.0-16.0); Mean Corpuscular HGB CONC 30.7 g/dL (32.0-36.0); Mean Corpuscular Hemoglobin 27.3 pg (27.0-31.0); Mean Corpuscular Volume 88.9 fL (78.0-98.0); Mean Platelet Volume 8.6 fL (7.4-10.4); Platelet Count 356 thou/uL (130-400); RBC Distribution Width 16.2 % (11.5-14.5); Red Blood Cell (RBC) Count 3.86 mill/uL (4.20-5.40); White Blood Cell (WBC) Count 12.7 thou/uL (4.8-10.8)
[2018-10-17 05:44] LABS: Anion Gap 11 mmol/L (10-20); BUN (Urea Nitrogen) 14 mg/dL (9.8-20.1); Calc. Creatinine Clearance 141 mL/min (70-130); Calcium 9.1 mg/dL (7.8-10.44); Carbon Dioxide 29 mmol/L (22-29); Chloride 103 mmol/L (98-107); Estimated GFR-MDRD 73; Glucose 147 mg/dL (70-105); Potassium 4.2 mmol/L (3.5-5.1); Sodium 139 mmol/L (136-145)
[2018-10-17] MEDS ORDERED: Mometasone/Formoterol 120 PUFF INHALER INH SCH (06:30)
[2018-10-17] MEDS ORDERED: Enoxaparin Sodium 40 MG/0.4 ML SYRINGE SC SCH (09:00)
[2018-10-17] MEDS ORDERED: Non-Formulary Item 1 EACH (Budesonide-Formoterol [Symbicort 160-4.5] 1 PUFF) INH SCH (09:00)
[2018-10-17] MEDS ORDERED: Aspirin Chewable 81 MG TAB PO SCH (09:00)
[2018-10-17] MEDS ORDERED: Nicotine 14 MG PATCH TD SCH (09:00)
[2018-10-17] MEDS ORDERED: Lisinopril 10 MG TAB PO SCH (09:00)
[2018-10-17] MEDS ORDERED: Regadenoson 0.4 MG/5 ML SYRINGE ONE (09:48)
--- NOTE | 2018-10-17 15:11 | PDOC.PN ---
- Subjective Encounter Start Date: 10/17/18 Encounter Start Time: 15:07 Subjective: Patient complaining of RUQ pain, it radiates towards her back. -: Also across the epigastric region. Denies any n/v. Tolerating food. -: Denies any fevers, chills or sweats. Has been moving her bowels as normal. She reports having a cholecystectomy in the past. The day after was readmitted due to retained gallstone. Reports having en esophageal resection (biopsy was benign) and states since then shes had hypersensitivity to the right lateral rib associated with nerve pain due to the incision/surgery. She also reports having issues with depression that caused her to gain a significant amount of weight in a short period of time. Recently her PCP checked a UA which did not show UTI but there was blood and protein prompting a referral to Nephrology which is scheduled for 10/22/18. She denies any blood in her stools. No constipation or diarrhea. No urinary symptoms. Denies any darkening of her urine or hematuria. No dysuriea, urgency or retention. - Objective Resuscitation Status - Order Detail: 10/16/18 21:57 Resuscitation Status Routine Co-Sign Provider: Resuscitation Status: FULL: Full Resuscitation Vital Signs & Weight: Vital Signs (12 hours) Temp Pulse Resp BP BP Pulse Ox 10/17/18 13:14 98.4 F 87 18 142/78 H 97 10/17/18 09:33 142/66 H 10/17/18 07:54 98.0 F 88 20 142/66 H 98 10/17/18 06:27 95 10/17/18 04:40 97.8 F 84 16 161/74 H 97 Weight Weight 254 lb 1.6 oz Result Diagrams: 10/17/18 04:38 10/17/18 04:38 Additional Labs: Accuchecks 10/17/18 10/16/18 13:06 23:55 POC Glucose 237 H 135 H Phys Exam - Physical Examination Constitutional: NAD HEENT: PERRLA, moist MMs, sclera anicteric, oral pharynx no lesions Neck: supple, full ROM Respiratory: clear to auscultation bilateral reduced at bases, decreased effort due to pain Cardiovascular: RRR Gastrointestinal: soft obese, right abdominal tenderness to palpation right renal angle tenderness Musculoskeletal: no edema, pulses present Neurological: normal sensation, moves all 4 limbs Psychiatric: normal affect, A&O x 3 Skin: no rash Dx/Plan (1) RUQ abdominal pain Code(s): R10.11 - RIGHT UPPER QUADRANT PAIN Status: Acute (2) Hepatic steatosis Code(s): K76.0 - FATTY (CHANGE OF) LIVER, NOT ELSEWHERE CLASSIFIED Status: Acute (3) Proteinuria Code(s): R80.9 - PROTEINURIA, UNSPECIFIED Status: Acute (4) Enlarged kidney Code(s): N28.81 - HYPERTROPHY OF KIDNEY Status: Acute - Plan cont current plan of care Status post cholecystectomy and esophageal resection. -: Possible pain associated with adhesions, no S/S of bowel obstruction. -: Abdo US notable for hepatic steatosis, and enlarged right kidney. -: Awaiting GI review. -: Further investigations as Per . Repeat LFTs/Lipase requested. Proteinuria present (300). She has OP Nephrology consult on 10/22/17. Will discuss with Dr. Neves if inpt consult preferred and/or further renal imaging. She is status post cardiac investigations, due to epigastric pain to rule out cardiac cause, however Troponins and BNP negative. We have canceled Echo and are awaiting stress test results.
[2018-10-17 15:51] VITALS: BP 134/65; TEMP 98.1
[2018-10-17 15:52] LABS: ALT (SGPT) 12 U/L (8-55); AST (SGOT) 11 U/L (5-34); Albumin 3.5 g/dL (3.5-5.0); Alkaline Phosphatase 106 U/L (40-150); Bilirubin, Direct 0.1 mg/dL (0.1-0.3); Bilirubin, Total 0.2 mg/dL (0.2-1.2); Lipase 8 U/L (8-78); Protein, Total 6.6 g/dL (6.0-8.3)
--- NOTE | 2018-10-17 16:07 | NM ---
NUCLEAR MEDICINE CARDIAC STRESS WITH EF AND WALL MOTION 10/17/18 HISTORY: Chest pain. COMPARISON: None. TECHNIQUE: Stress only imaging was performed. Patient was administered 30.8 millicuries technetium 99m Sestamibi . FINDINGS: There is homogeneous distribution of the radiotracer. End diastolic velocity is 106 mL. End systolic volume is 41 mL. CARDIAC GATING: Normal motion and thickening. Ejection fraction is 61%. IMPRESSION: 1. Ejection fraction is 61%. 2. Homogeneous distribution of the radiotracer in the left ventricle. POS: [facility]
--- NOTE | 2018-10-17 21:13 | CON ---
DATE OF CONSULTATION: 10/17/2018 REASON FOR CONSULTATION: Right upper quadrant abdominal pain. CONSULTING PROVIDER: Alexandria Read MD HISTORY OF PRESENT ILLNESS: The patient is a 58-year-old female with past medical history of hypertension, diabetes, tobacco abuse, morbid obesity, and an esophageal tumor, presenting with complaints of right upper quadrant abdominal pain. The patient states that she had been having increased right upper quadrant abdominal pain that has been present since November 2017, when she had a cholecystectomy performed at this hospital. Within 1 week of her cholecystectomy, she states that her right upper quadrant abdominal pain flared, prompting her to seek admission in the ER in [place], [place]. There, she was told that she may have a retained stone, but no ERCP was performed at that time. Since then, her pain has been relatively constant and characterizes a sharp/stabbing type sensation, radiates to her mid back and would reach a severity of 8/10. The pain is worse with increased coughing, deep inspiration, lying on her left side and twisting movements to the right, better with not moving at all. She also states that she has been having increased chronic lower back pain during the same time, especially within the mid and lower back. Currently, she denies any nausea, vomiting, fevers, chills, GI bleeding, dysphagia, odynophagia, diarrhea, or constipation. She has lost approximately 100 pounds due to significant lifestyle changes, but has gained approximately 20 pounds of that back within the last few months. REVIEW OF SYSTEMS: A 10-category review of systems was obtained with all responses negative except for the pertinent positives as listed in the HPI. PAST MEDICAL HISTORY: As per HPI. 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 SOCIAL HISTORY: The patient continues to smoke about one-half pack cigarettes per day. She denies any alcohol or illicit drug use. OUTPATIENT MEDICATIONS: Reviewed. ALLERGIES: SHELLFISH AND PREDNISONE. PHYSICAL EXAMINATION: VITAL SIGNS: Temperature 98.1, pulse 96, blood pressure 134/65, respiratory rate 20, saturating 98% on room air. GENERAL: The patient was lying in bed, in no acute distress. Alert and oriented x4. HEENT: Normocephalic, atraumatic. NECK: Supple. No JVD or scleral icterus noted. CARDIOVASCULAR: Regular rate and rhythm with no discernible murmurs, gallops, or rubs. RESPIRATORY: Clear to auscultation bilaterally. No discernible wheezes or rales. ABDOMEN: Normoactive bowel sounds. Soft, nondistended. Tenderness to palpation in the right upper quadrant and midepigastric region. However, upon pressing on the lower ribs on the right upper quadrant, I could reproduce her pain. BACK: Palpation of the spinous process of the vertebra elicited increased back pain in the mid thoracic and lower lumbar regions. Palpation of the ribs in the mid thoracic back extending on to the right reproduced her pain in the right upper quadrant. EXTREMITIES: No cyanosis, clubbing, or edema. LABORATORY DATA: CBC with a white blood cell count of 12.7, hemoglobin 10.5, hematocrit 34.3, and platelets 356. Chemistry with a sodium of 139, potassium 4.2, chloride 103, CO2 of 29, BUN 14, creatinine 0.81, glucose 147, AST 12, ALT 14, alkaline phosphatase 114, total bilirubin 0.4, albumin 3.8. IMAGING DATA: CT of the chest and thorax obtained on October 16 showed no mediastinal mass, lymphadenopathy or hematoma. There were mildly enlarged gastrohepatic lymph nodes, as well as enlarged periportal lymph nodes measuring up to 3 cm in size. This lymphadenopathy was unchanged when compared to the examination on May 2018. Cholecystectomy was also noted. There were no lytic or blastic lesions in the osseous structures and a nonspecific air-fluid level was seen in the visualized esophagus. No evidence of filling defect to suggest thromboembolism as well. Right upper quadrant ultrasound obtained on October 16, 2018, showed diffuse increased echotexture consistent with fatty liver. No fluid was seen in the gallbladder fossa and the common bile duct measured 4 mm in size. ASSESSMENT AND PLAN: The patient is a 58-year-old female with past medical history of hypertension, diabetes, tobacco abuse, morbid obesity, and benign esophageal tumor, presenting with right upper quadrant abdominal pain consistent with spinal radiculopathy. Thoracic radiculopathy. The patient is presenting with a history of increased right upper quadrant abdominal pain that has been present since her cholecystectomy in November 2017. The pain is characterized as a sharp/stabbing type sensation, will radiate to her back, is constant with waxing and waning severity, and will reach a severity of 8/10. It's primary exacerbating factors involve movement of the ribs including coughing, deep aspiration, and lying on her left as well as twisting movements. On physical examination today, I was able to reproduce her pain by palpation of the ribs on the right side, as well as palpation of the spinous processes in the mid thoracic region and the ribs extending over to the right side on her back. At this point, it sounds like that the etiology of her pain is more consistent with a thoracic radiculopathy related to chronic back pain with a GI source of her pain being very unlikely at this time. With the current imaging showing no fluid within the gallbladder fossa, a bile duct leak is highly unlikely and choledocholithiasis is also highly unlikely given normal LFTs and a normal common bile duct measurement on ultrasound. RECOMMENDATIONS: 1. We would consider imaging of the thoracic spine, looking for foraminal impingement of the nerve and resulting radiculopathy. 2. We would have the patient follow up in the GI Clinic as an outpatient for followup on an esophageal tumor. 3. Pain control per primary team. We will sign off at this time. Please call with any questions. Job ID: [id number]
== END 2018-10-17 18:51 | disposition home or self-care (01) ==
LOC: ERS 15:34 → 2SW 23:43
PROVIDERS: ADMIT Family Medicine; ATTEND Family Medicine
DX: R10.11 Right upper quadrant pain (principal); I10 Essential (primary) hypertension; E11.9 Type 2 diabetes mellitus without complications; E66.01 Morbid (severe) obesity due to excess calories; Z68.42 Body mass index [BMI] 45.0-49.9, adult; F17.210 Nicotine dependence, cigarettes, uncomplicated; D72.829 Elevated white blood cell count, unspecified; K76.0 Fatty (change of) liver, not elsewhere classified; N28.81 Hypertrophy of kidney; Z90.49 Acquired absence of other specified parts of digestive tract; Z91.013 Allergy to seafood; Z88.8 Allergy status to other drugs, medicaments and biological substances; Z79.82 Long term (current) use of aspirin; Z79.84 Long term (current) use of oral hypoglycemic drugs; Z79.899 Other long term (current) drug therapy; Z98.890 Other specified postprocedural states
CPT/HCPCS: 71046; 71275; 76705; 78452; 80048; 80053; 80076; 82550; 82962 ×2; 83690; 83880; 84484 ×4; 85025 ×2; 93005; 93017; 94640 ×3; 94760 ×2; 96361; 96372; 96374; 96375; 97139; 99285; A9500; G0378 ×2; 36415; 36416; 81003; 81015; J1650; J2270; J2405; J2785; J7620; Q9966; S0028

== ENCOUNTER 2019-04-13 07:48 | Outpatient (CLI) | payer MEDICARE ==
--- NOTE | 2019-04-13 08:50 | CT ---
CT Pulmonary Lung Scan History: Low dose cancer screening. Current smoker. Personal history of nicotine dependence. Comparison: CT angiogram chest September 2018. Findings: Lung screening specific (Lung-RADS): Negative. No suspicious pulmonary nodules. Potentially significant incidentals (Lung-RADS category S): No new or unknown findings requiring urge nt additional evaluation. Pulmonary incidentals: There is a focal area of bronchiectasis in the right middle lobe with adjacent parenchymal scarring. No pneumothorax. No effusion. Other incidentals: The pulmonary trunk size is enlarged measuring 3.6 cm. No pericardial effusion. Mo derate coronary artery calcifications. No acute osseous abnormality. Mild mid thoracic spine degenerative change. Impression: 1. Lung-RADS category 2: Benign appearance or behavior. Recommend low dose screening CT in 12 months . 2. Lung-RADS category S: Negative. 3. Dilatation of pulmonary trunk suggesting pulmonary arterial hypertension. Transcribed Date/Time: 04/13/2019 9:32 AM
== END 2019-04-13 07:49 | disposition home or self-care (01) ==
LOC: CT 07:48
PROVIDERS: ATTEND Internal Medicine Medical Oncology
DX: Z87.891 Personal history of nicotine dependence (principal); I28.8 Other diseases of pulmonary vessels
CPT/HCPCS: G0297

== ENCOUNTER 2019-06-08 09:30 | Observation (INO) | payer MEDICARE ==
[2019-06-08] MEDS ORDERED: Aspirin Chewable 81 MG TAB ONE (10:13)
[2019-06-08 10:18] LABS: #Eosinphils 0.2 thou/uL (0.0-0.7); #Lymphocytes 3.1 thou/uL (1.20-3.40); #Monocytes 0.8 thou/uL (0.11-0.59); #Neutrophils 7.2 thou/uL (1.40-6.50); %Basophils 0.3 % (0.0-1.0); %Eosinophils 1.7 % (0.0-10.0); %Lymphocytes 27.3 % (21.0-51.0); %Monocytes 7.4 % (0.0-10.0); %Neutrophils 63.3 % (42.0-75.0); Hemoglobin 12.6 g/dL (12.0-16.0); Mean Corpuscular HGB CONC 33.1 g/dL (32.0-36.0); Mean Corpuscular Hemoglobin 28.9 pg (27.0-31.0); Mean Corpuscular Volume 87.2 fL (78.0-98.0); Mean Platelet Volume 8.6 fL (7.4-10.4); Platelet Count 342 thou/uL (130-400); Red Blood Cell (RBC) Count 4.37 mill/uL (4.20-5.40); White Blood Cell (WBC) Count 11.4 thou/uL (4.8-10.8)
--- NOTE | 2019-06-08 10:21 | RAD ---
EXAM: Single view of the chest HISTORY: Chest pain COMPARISON: 08/28/2018 FINDINGS: Single view of the chest shows an enlarged but stable cardiomediastinal silhouette. There i s no evidence of consolidation, mass, or pleural effusion. The bones are unremarkable. IMPRESSION: No evidence of acute cardiopulmonary disease
--- NOTE | 2019-06-08 10:22 | RAD ---
EXAM: 3 views of the left foot HISTORY: Foot pain after fall COMPARISON: None FINDINGS: 3 views of the left foot shows no evidence of acute fracture or dislocation. There is remod eling of the proximal phalanx of the small toe which may represent a remote healed fracture. No soft tissue swelling is seen. No degenerative changes are present. IMPRESSION: No evidence of acute osseous abnormality.
[2019-06-08 10:30] LABS: ALT (SGPT) 13 U/L (8-55); AST (SGOT) 10 U/L (5-34); Albumin 3.8 g/dL (3.5-5.0); Alkaline Phosphatase 118 U/L (40-110); Anion Gap 12 mmol/L (10-20); BUN (Urea Nitrogen) 15 mg/dL (9.8-20.1); Bilirubin, Total 0.2 mg/dL (0.2-1.2); Calc. Creatinine Clearance 0 mL/min (70-130); Calcium 9.3 mg/dL (7.8-10.44); Carbon Dioxide 27 mmol/L (22-29); Chloride 103 mmol/L (98-107); Estimated GFR-MDRD 55; Globulin 3.8 g/dL (2.4-3.5); Glucose 157 mg/dL (70-105); Potassium 3.7 mmol/L (3.5-5.1); Protein, Total 7.6 g/dL (6.0-8.3); Sodium 138 mmol/L (136-145)
--- NOTE | 2019-06-08 10:30 | RAD ---
RIGHT KNEE 4 VIEWS: Date: 06/08/19 INDICATION: Fall. FINDINGS: There are moderate degenerative changes noted. Mild narrowing of the medial joint space. Spurring fro m all joint compartments. No evidence of joint effusion. No fracture identified. IMPRESSION: Moderately severe degenerative change. No acute fracture identified. POS: [facility]
[2019-06-08] MEDS ORDERED: ISOVUE-370 76%-LOCM 1 ML ONE (11:08)
[2019-06-08] MEDS ORDERED: Morphine 4 MG/ML VIAL ONE (11:18)
--- NOTE | 2019-06-08 11:53 | CT ---
CT ANGIOGRAM OF CHEST: Date: 06/08/19 COMPARISON: 10/16/18. HISTORY: Chest pain. Syncope. Fall. TECHNIQUE: CT angiogram of the chest is performed in the axial plane. Three-dimensional reformatted images are s ubmitted for interpretation. FINDINGS: Mediastinum: Nonspecific, nonenlarged mediastinal lymph nodes are unchanged. No mass or hematoma. He art size is upper normal. No significant pericardial fluid. Aorta: Visualized aorta has a normal caliber. No periaortic fat stranding. Upper Abdomen: Stable nodularity in the right adrenal gland. No acute abnormality. Stable nonspecifi c gastrohepatic lymph nodes along with stable enlarged periportal lymphadenopathy measuring 2.7 x 1.7 cm. Trachea/Central Bronchi: Patent. Lungs: Patchy ground-glass opacities are demonstrated, which have developed since the previous exami nation suggesting edema or infiltrate. No consolidation with air bronchograms. Pleural Spaces: No pleural fluid. Pneumothorax: None. Osseous Structures: Chronic change involving thoracic spine. Adequate contrast opacification of the pulmonary arterial system to the level of the segmental arteri es. No filling defects to suggest thromboembolism. IMPRESSION: 1. No evidence of pulmonary artery embolism to the level of the segmental arteries. 2. Stable nodule in the right adrenal gland. 3. Stable mildly enlarged periportal lymph nodes. CODE T. POS: [facility]
[2019-06-08] MEDS ORDERED: cefTRIAXone\\ROCEPHIN 1 GM VIAL ONE (13:02)
[2019-06-08] MEDS ORDERED: Morphine 2 MG/ML SYRINGE ONE ×2 (13:05→15:57)
[2019-06-08 14:00] LABS: Troponin I Less than 0.010 ng/mL (< 0.028)
[2019-06-08] MEDS ORDERED: Ondansetron ODT 4 MG TAB PO PRN (15:20)
[2019-06-08] MEDS ORDERED: Ondansetron PF 4 MG/2 ML Vial IVP PRN (15:20)
[2019-06-08] MEDS ORDERED: Dextrose 5% in Water 1,000 ML IV PRN (15:21)
[2019-06-08] MEDS ORDERED: HumaLOG 300 UNITS/3 ML VIAL SC PRN ×2 (15:21)
[2019-06-08] MEDS ORDERED: Dextrose 50% Abboject 50 ML SYRINGE SLOW IVP PRN (15:21)
--- NOTE | 2019-06-08 16:04 | ULT ---
BILATERAL CAROTID DUPLEX ULTRASOUND: HISTORY: TIA TECHNIQUE: Grayscale, color-flow and spectral Doppler ultrasound imaging of the extracranial carotid artery syst ems was performed bilaterally. FINDINGS: Minimal calcified atherosclerotic plaque is seen in the region of the carotid bulbs bilaterally as we ll as at the origin of each external carotid artery. There is no hemodynamically significant stenosis in the bilateral internal carotid arteries according to the peak systolic velocities and the ICA/CCA ratios. The peak systolic velocity in the right ICA measures 91.8 cm/s. The peak systolic velocity in the left ICA measures 74.7 cm/s. The right IC A/CCA ratio is 1.16, and the left ICA/CCA ratio is 0.94. Vertebral arteries: Antegrade flow is demonstrated in the vertebral arteries bilaterally. IMPRESSION: No hemodynamically significant stenosis in the bilateral internal carotid arteries.
--- NOTE | 2019-06-08 16:16 | HP ---
PRIMARY CARE PHYSICIAN: Yanira Quinn, [employer] CHIEF COMPLAINT: Syncope and fall. HISTORY OF PRESENT ILLNESS: Ms. Ghosh was a 58-year-old female with a past medical history of hypertension, diabetes mellitus type 2, and tobacco abuse, who had presented to the ED earlier today after she had experienced a syncopal episode and fall yesterday afternoon. She states that she was walking down some steps and when she got to the last step she had "passed out," and the next thing she knew she was waking up on the floor. She states over the last 6 months, this has happened roughly 3 to 4 other times. She was in the hospital back in September of 2018 for chest pain, she had undergone a cardiac workup during that time, which had included a cardiac stress test, which was found to be normal. She was stabilized and then later discharged home. She states that after she had fallen, she had noticed pain in her knee, foot, and in her chest region. Her initial workup in the ED included a left foot 3-view x-ray, which was found to be normal. A right knee 4-view x-ray, which found moderately severe degenerative changes, but no acute fracture was identified. Portable chest x-ray was also performed and found to be normal. Her lab work indicated a slightly elevated D-dimer of 0.52, therefore, a CTA of the chest was performed and found to be negative for a PE at this time. The CTA did show some patchy ground-glass opacities suggesting either edema or infiltrate. Therefore, she was treated with an IV antibiotic, Rocephin in the ED. However, the patient denied any symptoms at this time. She had denied any fever, chills, any headache, blurred vision, dizziness, any palpitations, shortness of breath, cough, abdominal pain, nausea, or vomiting. She states that her pain in her chest, knee, and foot is worse with movement and when she changes position. Her serial troponins were found to be negative x2 and her BNP is normal and less than 10. REVIEW OF SYSTEMS: All other systems reviewed and found to be negative unless mentioned in HPI. PAST MEDICAL HISTORY: Hypertension, diabetes mellitus type 2, and asthma. PAST SURGICAL HISTORY: Carpal tunnel surgery x2, finger surgeries, right knee meniscus repair, cholecystectomy, esophageal tumor removal, and right elbow surgery. PSYCHIATRIC HISTORY: Includes anxiety and depression. SOCIAL HISTORY: The patient denies alcohol use and she states that she currently smokes about a half pack of cigarettes per day. She is a former drug user, which she abused cocaine and marijuana along with methamphetamines and opiates in the past, however, denies any form of illicit drug use at this time. KNOWN ALLERGIES: Shellfish and prednisone. CURRENT HOME MEDICATIONS: 1. Aspirin 81 mg daily. 2. Metformin 500 mg oral twice daily. 3. Budesonide/formoterol 160/4.5 mg 1 puff inhalation p.r.n. shortness of breath. 4. Bentyl 10 mg p.o. t.i.d. 5. Glimepiride 2 mg p.o. daily. 6. Victoza 1.8 mg subcu daily. 7. Lisinopril 10 mg p.o. b.i.d. 8. Protonix 20 mg oral daily. 9. Simvastatin 10 mg oral at bedtime. 10. Trazodone 100 mg p.o. at bedtime. 11. Albuterol sulfate 90 mcg inhalation q.4 hours as needed for shortness of breath. PHYSICAL EXAMINATION: VITAL SIGNS: BP 146/70, pulse 88, respiration 18, temp 97.8, and O2 saturation 98% on room air. GENERAL: The patient is awake, alert, and oriented x3. She is currently lying comfortably in bed and in no acute distress. HEENT: Atraumatic and normocephalic. Pupils are round and reactive to light. Extraocular muscles intact. Moist mucous membranes noted. NECK: Soft and supple. Trachea midline. CARDIOVASCULAR: Positive S1 and S2. Regular rate and rhythm. No murmur auscultated. RESPIRATORY: Clear to auscultation bilaterally. No wheezes, rales, or rhonchi. ABDOMEN: Soft and nontender. Bowel sounds present. EXTREMITIES: Moves all extremities equal. Pedal and radial pulses 2+ bilaterally. No edema noted. NEUROLOGIC: Cranial nerves 2 through 12 grossly intact. No focal deficits noted. Speech intact and normal. Gait not assessed. SKIN: Warm, dry, and intact. No rashes. No ulceration noted. PSYCHIATRIC: Good mood and affect. LABORATORY DATA: WBC 11.4, RBC 4.37, hemoglobin 12.6, and platelet 342. D-dimer 0.52. Sodium 138, potassium 3.7, anion gap 12, BUN 15, creatinine 1.04, estimated GFR 55, and glucose 157. Troponin less than 0.010 x2. BNP less than 10. DIAGNOSTIC IMAGING: Portable chest x-ray showed no evidence of acute cardiopulmonary disease. Right knee x-ray 4 view showed moderately severe degenerative changes with no acute fracture identified. Left foot x-ray, 3 view showed no evidence of acute osseous abnormality. CT of the chest showed no evidence of pulmonary artery embolism. ASSESSMENT/PLAN: 1. Syncope and collapse. The patient's CTA was stable. It had ruled out a pulmonary embolism at this time. We will also check orthostatic vital signs along with obtaining an MRI of the brain without contrast, carotid Doppler, and an echocardiogram for a thorough workup. The patient had a negative pharmacological cardiac stress test back in September of 2018, which was found to be normal. Her serial troponins were found to be negative x2 with no EKG changes thus far. 2. Hypertension, currently stable at this time. Monitor blood pressure and other vital signs closely. 3. History of diabetes mellitus type 2. Restarted on her home regimen along with insulin sliding scale with frequent Accu-Cheks. 4. Tobacco abuse, highly recommended smoking cessation. 5. History of drug abuse. We will check a urine drug screen at this time. 6. Deep venous thrombosis and gastrointestinal prophylaxis. 7. Code status, full code. 8. Disposition pending further workup and clinical findings. Job ID: [id number]
--- NOTE | 2019-06-08 16:32 | MRI ---
EXAM: MRI Brain WO Con PROVIDED CLINICAL HISTORY: Syncope. Chest pain. COMPARISON: None FINDINGS: A few punctate foci of increased FLAIR and T2-weighted signal intensity are seen within the left nahum ventricular and subcortical white matter which are nonspecific but may be related to minimal chronic small vessel ischemic changes. There is no restricted diffusion to suggest an acute infarctio n. Septum pellucidum and third ventricle are in the midline. The ventricular system is normal in size, shape, and position. Appropriate flow voids are demonstrated at the base of the brain. There is an increased T1 and T2 weighted signal intensity lesion in the posterior aspect of the pitui tary gland. 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 Mucosal thickening is seen in a few ethmoidal air cells bilaterally. Orbits and skull base otherwise have a normal MRI appearance. IMPRESSION: 1. Pituitary lesion demonstrating increased signal intensity on T1 and T2-weighted images. This may p otentially represent a Rathke's cleft cyst, but dedicated imaging of the pituitary gland is recommended. MRI brain following the pituitary mass protocol is recommended on a nonemergent basis. 2. Signal abnormalities left periventricular and subcortical white matter which are nonspecific and o f uncertain etiology statistically likely represent minimal chronic small vessel ischemic changes. 3. No acute intracranial abnormalities demonstrated.
[2019-06-08 17:54] LABS: Troponin I Less than 0.010 ng/mL (< 0.028)
[2019-06-08 18:02] VITALS: BMI 43.7
[2019-06-08 20:00] LABS: Amphetamine Not Detected (NotDetected); Barbiturates Screen Not Detected (NotDetected); Benzodiazepine Screen Not Detected (NotDetected); Cocaine Metabolite Screen Not Detected (NotDetected); Medtox Control Line Valid? VALID (VALID); Medtox Reader # READER 4; Methadone Not Detected (NotDetected); Methamphetamine Not Detected (NotDetected); Opiate Screen Detected (NotDetected); Oxycodone Screen Not Detected (NotDetected); Phencyclidine (PCP) Not Detected (NotDetected); THC/Cannabinoid Screen Not Detected (NotDetected); Tricyclic Screen Not Detected (NotDetected)
[2019-06-08] MEDS: traMADol HCl 50 MG TAB PO PRN (20:05)
[2019-06-08] MEDS: Acetaminophen 325 MG TAB PO PRN (21:07)
[2019-06-09] MEDS ORDERED: Ketorolac Tromethamine 30 MG/ML VIAL IVP SCH (00:30)
[2019-06-09] MEDS: Acetaminophen 325 MG TAB PO PRN ×2 (03:14→08:48)
[2019-06-09 06:29] LABS: #Basophils 0.1 thou/uL (0.0-0.2); #Eosinphils 0.3 thou/uL (0.0-0.7); #Lymphocytes 3.5 thou/uL (1.20-3.40); #Neutrophils 5.4 thou/uL (1.40-6.50); %Basophils 0.5 % (0.0-1.0); %Eosinophils 2.8 % (0.0-10.0); %Lymphocytes 33.7 % (21.0-51.0); %Monocytes 10.1 % (0.0-10.0); %Neutrophils 52.9 % (42.0-75.0); Hemoglobin 10.7 g/dL (12.0-16.0); Mean Corpuscular HGB CONC 33.1 g/dL (32.0-36.0); Mean Corpuscular Hemoglobin 29.5 pg (27.0-31.0); Mean Corpuscular Volume 89.3 fL (78.0-98.0); Mean Platelet Volume 8.4 fL (7.4-10.4); Platelet Count 309 thou/uL (130-400); RBC Distribution Width 16.2 % (11.5-14.5); Red Blood Cell (RBC) Count 3.62 mill/uL (4.20-5.40); White Blood Cell (WBC) Count 10.2 thou/uL (4.8-10.8)
[2019-06-09 06:45] LABS: Anion Gap 13 mmol/L (10-20); BUN (Urea Nitrogen) 16 mg/dL (9.8-20.1); Calc. Creatinine Clearance 119 mL/min (70-130); Calcium 8.7 mg/dL (7.8-10.44); Carbon Dioxide 25 mmol/L (22-29); Chloride 105 mmol/L (98-107); Estimated GFR-MDRD 62; Glucose 144 mg/dL (70-105); Potassium 3.9 mmol/L (3.5-5.1); Sodium 139 mmol/L (136-145)
[2019-06-09] MEDS ORDERED: Enoxaparin Sodium 40 MG/0.4 ML SYRINGE SC SCH (09:00)
[2019-06-09] MEDS ORDERED: FLU VACC QS2019-20(6MOS UP)/PF 60 MCG/0.5 ML SYRINGE IM ONE (09:00)
[2019-06-09] MEDS: traMADol HCl 50 MG TAB PO PRN (10:17)
[2019-06-09 12:27] VITALS: BP 155/83; TEMP 97.9
--- NOTE | 2019-06-09 18:12 | DIS ---
DATE OF ADMISSION: 06/08/2019 DATE OF DISCHARGE: 06/09/2019 DISCHARGE DISPOSITION: Home. PRIMARY DISCHARGE DIAGNOSES: Syncope, resolved. Chest pain, resolved. Hypertension, diabetes mellitus type 2, morbid obesity with BMI of 43. PROCEDURES DONE DURING HOSPITALIZATION: CT angio chest was negative for PE. MRI brain showed incidental finding of a Rathke's cyst. Further pituitary protocol to be done as outpatient. Chest x-ray showed no acute cardiopulmonary abnormalities. Left foot x-ray showed no evidence of fractures or dislocation. Right knee showed findings of osteoarthritis. No fracture. Carotid ultrasound showed no evidence of hemodynamically significant stenosis. Orthostatic blood pressures were within normal limits. H and H 10 and 32, platelet count 309. Urine drug screen was positive for opiates. BUN 16, creatinine 0.9. Troponin x3 is negative. BNP less than 10. Albumin 3.8. DISCHARGE MEDICATIONS: 1. Albuterol inhaler q.4 hourly p.r.n. 2. Aspirin 81 mg p.o. daily. 3. Symbicort 160/4.5 mcg 2 puffs twice daily. 4. Flexeril 20 mg p.o. at bedtime. 5. Dexilant 60 mg p.o. daily. 6. Glimepiride 2 mg p.o. twice daily. 7. Lisinopril 10 mg twice daily. 8. Metformin 500 mg p.o. twice daily. 9. Simvastatin 10 mg p.o. at bedtime. 10. Trazodone 150 mg p.o. at bedtime. ALLERGIES: SHELLFISH AND PREDNISONE. DISCHARGE PLAN: The patient to follow up with her primary care physician, nurse practitioner Ms. Yanira Quinn in 1 week. BRIEF COURSE DURING HOSPITALIZATION: The patient initially came to ER on the with complaints of falling and passing out with hurting her right knee and left foot. She also developed mild chest discomfort during this episode. In view of this, she was placed under observation on telemetry. She has had complete neurologic workup done which was negative as mentioned above. Three sets of troponin were negative. She has had a recent stress test done in September, which was negative. Orthostatic blood pressures were negative as well. She has remained hemodynamically stable. She has ambulated on the floor. No fractures were seen in either the right knee or left foot. She is otherwise hemodynamically stable and will be shortly discharged home. The patient was counseled with regard to weight loss with healthy eating and exercise. She needs to follow up with her primary care physician in 1 week. Please note, I have seen and examined the patient on the day of discharge. Job ID: [id number] CHINYERE
== END 2019-06-09 15:25 | disposition home or self-care (01) ==
LOC: ERS 09:30 → 2SW 17:00 → ERS 17:22
PROVIDERS: ADMIT Internal Medicine; ATTEND Internal Medicine
DX: R55 Syncope and collapse (principal); R07.89 Other chest pain; F17.210 Nicotine dependence, cigarettes, uncomplicated; E11.9 Type 2 diabetes mellitus without complications; I10 Essential (primary) hypertension; J45.909 Unspecified asthma, uncomplicated; F41.9 Anxiety disorder, unspecified; F32.9 Major depressive disorder, single episode, unspecified; F14.11 Cocaine abuse, in remission; F12.11 Cannabis abuse, in remission; F11.11 Opioid abuse, in remission; F15.11 Other stimulant abuse, in remission; E23.6 Other disorders of pituitary gland; E66.01 Morbid (severe) obesity due to excess calories; Z68.41 Body mass index [BMI] 40.0-44.9, adult; Z79.82 Long term (current) use of aspirin; Z79.84 Long term (current) use of oral hypoglycemic drugs; Z79.899 Other long term (current) drug therapy; Z88.8 Allergy status to other drugs, medicaments and biological substances; Z91.013 Allergy to seafood; W10.8XXA Fall (on) (from) other stairs and steps, initial encounter
CPT/HCPCS: 70551; 71045; 71275; 73564; 73630; 80048; 80053; 80306; 82962 ×2; 83880; 84484 ×2; 85025 ×2; 85379; 90686; 90732; 93005; 93880; 94640 ×2; 96361; 96365; 96375 ×3; 96376 ×2; 99285; G0008; G0009; G0378 ×2; 36415; 36416; 90471; J0696; J1885; J2270; J7620

== ENCOUNTER 2019-12-04 09:13 | Emergency (ER) | payer MEDICARE ==
[2019-12-04] MEDS ORDERED: Ondansetron PF 4 MG/2 ML Vial ONE (09:42)
[2019-12-04] MEDS ORDERED: Morphine 4 MG/ML VIAL ONE (09:42)
[2019-12-04 09:56] LABS: Bilirubin Negative (Negative); Blood, Urine Negative (Negative); Clarity Clear (Clear); Glucose, Urine (Dipstick) 100 mg/dL (Negative); Leukocyte Negative Leu/uL (Negative); Nitrite Negative (Negative); Protein, Urine (Dipstick) 300 mg/dL (Neg-Trace); RBC/HPF 0-3 HPF (0-3); Squamous Epithelial 0-3 HPF (0-3); Urobilinogen Normal mg/dL (Less than 2)
[2019-12-04 10:01] LABS: Bacteria/HPF 1+ HPF (None Seen)
[2019-12-04 10:03] LABS: #Basophils 0.1 thou/uL (0.0-0.2); #Eosinphils 0.2 thou/uL (0.0-0.7); #Lymphocytes 2.3 thou/uL (1.20-3.40); #Monocytes 0.9 thou/uL (0.11-0.59); #Neutrophils 8.2 thou/uL (1.40-6.50); %Basophils 0.9 % (0.0-1.0); %Eosinophils 1.4 % (0.0-10.0); %Lymphocytes 20.1 % (21.0-51.0); %Monocytes 7.3 % (0.0-10.0); %Neutrophils 70.3 % (42.0-75.0); Hemoglobin 11.6 g/dL (12.0-16.0); Mean Corpuscular HGB CONC 31.6 g/dL (32.0-36.0); Mean Corpuscular Hemoglobin 28.3 pg (27.0-31.0); Mean Corpuscular Volume 89.6 fL (78.0-98.0); Mean Platelet Volume 9.3 fL (7.4-10.4); Platelet Count 331 thou/uL (130-400); White Blood Cell (WBC) Count 11.6 thou/uL (4.8-10.8)
[2019-12-04 10:17] LABS: ALT (SGPT) 11 U/L (8-55); AST (SGOT) 10 U/L (5-34); Albumin 3.6 g/dL (3.5-5.0); Alkaline Phosphatase 109 U/L (40-110); Anion Gap 13 mmol/L (10-20); BUN (Urea Nitrogen) 18 mg/dL (9.8-20.1); Bilirubin, Total 0.3 mg/dL (0.2-1.2); Calc. Creatinine Clearance 0 mL/min (70-130); Carbon Dioxide 26 mmol/L (22-29); Chloride 104 mmol/L (98-107); Estimated GFR-MDRD 70; Globulin 3.5 g/dL (2.4-3.5); Glucose 164 mg/dL (70-105); Potassium 4.5 mmol/L (3.5-5.1); Protein, Total 7.1 g/dL (6.0-8.3); Sodium 138 mmol/L (136-145)
--- NOTE | 2019-12-04 10:35 | CT ---
CT ABDOMEN AND PELVIS: 12/04/2019 HISTORY: Flank pain, right greater than left. COMPARISON: None. TECHNIQUE: Axial CT imaging at 5 mm intervals from the lung bases through the possibility without contrast. Kevin nal and sagittal reformatted imaging obtained. FINDINGS: Lack of contrast media limits assessment of the viscera, bowel and vascular structures and for lympha denopathy. The visualized lung bases are unremarkable. No free intraperitoneal air or fluid. Cholecystectomy cli ps are noted. Coronary arterial calcification is noted. The liver, spleen, pancreas, adrenal glands and kidneys demonstrate no acute findings. There is a sma ll adrenal nodule on the right, measuring approximately 8-9 mm in transverse dimension, too small to characterize on this examination. Limited assessment of the bowel demonstrates no evidence for inflammatory change or obstruction. Review of the osseous structures demonstrates multilevel degenerative change within the imaged spine, including multilevel mid and lower lumbar spine disk space narrowing, degenerative endplate change a nd vacuum disk formation. No worrisome lytic or blastic bone lesion. No hydronephrosis or hydroureter is apparent on either side. No nephrolithiasis or calcification francisca g the course of either ureter. IMPRESSION: No evidence for nephrolithiasis or obstructive uropathy. POS: [facility]
[2019-12-04] MEDS ORDERED: Ketorolac Tromethamine 30 MG/ML VIAL ONE (12:20)
== END 2019-12-04 15:39 | disposition home or self-care (01) ==
LOC: ERS 09:13
DX: R10.9 Unspecified abdominal pain (principal); D72.829 Elevated white blood cell count, unspecified; E11.65 Type 2 diabetes mellitus with hyperglycemia; R10.811 Right upper quadrant abdominal tenderness; R10.813 Right lower quadrant abdominal tenderness; I10 Essential (primary) hypertension; F41.9 Anxiety disorder, unspecified; F32.9 Major depressive disorder, single episode, unspecified; F17.210 Nicotine dependence, cigarettes, uncomplicated; Z79.82 Long term (current) use of aspirin; Z79.84 Long term (current) use of oral hypoglycemic drugs; Z79.899 Other long term (current) drug therapy
CPT/HCPCS: 74176; 80053; 81003; 81015; 85025; 96361; 96374; 96375; J1885; J2270; J2405

== ENCOUNTER 2020-07-18 09:56 | Outpatient (CLI) | payer MEDICARE | END 2020-07-18 09:57 | disposition home or self-care (01) | LOC: DTY/OP 09:56 | PROVIDERS: ATTEND Specialist | DX: Z01.818 Encounter for other preprocedural examination (principal); E66.01 Morbid (severe) obesity due to excess calories | CPT/HCPCS: 36415; 80053; 80061; 82306; 82607; 82728; 82746; 83036; 83540; 84425; 84436; 84443; 84480; 85025; 97802 ==

== ENCOUNTER 2020-08-16 06:58 | Outpatient (CLI) | payer MEDICARE ==
[2020-08-16 22:45] LABS: SARS-CoV-2 MS2 Positive; SARS-CoV-2 N Gene Negative; SARS-CoV-2 S Gene Negative; SARS-CoV-2 by NAA Not Detected (NotDetected); SARS-CoV-2 orf1ab Negative
== END 2020-08-16 06:59 | disposition home or self-care (01) ==
LOC: LABBT 06:58
PROVIDERS: ATTEND Specialist
DX: Z01.812 Encounter for preprocedural laboratory examination (principal); Z20.828 Contact with and (suspected) exposure to other viral communicable diseases; J45.30 Mild persistent asthma, uncomplicated; E78.00 Pure hypercholesterolemia, unspecified; E13.9 Other specified diabetes mellitus without complications; M25.561 Pain in right knee; M54.41 Lumbago with sciatica, right side; G89.29 Other chronic pain; I10 Essential (primary) hypertension
CPT/HCPCS: 87635; U0003

== ENCOUNTER 2020-08-16 12:45 | Inpatient (IN) | payer MEDICARE ==
[2020-08-15 10:25] VITALS: BMI 43.3
[2020-08-21] MEDS ORDERED: Fentanyl 100 MCG/2 ML VIAL ONE ×3 (06:35→10:11)
[2020-08-21] MEDS ORDERED: Famotidine/PF 20 mg/2ml Vial ONE (06:35)
[2020-08-21] MEDS ORDERED: Phenylephrine 10 MG/ML VIAL ONE (06:35)
[2020-08-21] MEDS ORDERED: SUGAMMADEX SODIUM 500 MG/5 ML VIAL ONE (06:35)
[2020-08-21] MEDS ORDERED: Lidocaine 1% w/Epinephrine 1:100K 20 ML VIAL ONE (06:38)
[2020-08-21] MEDS ORDERED: Bupivacaine 0.25% HCL 30 ML VIAL ONE (06:38)
[2020-08-21] MEDS ORDERED: Heparin 5,000 UNITS/ML VIAL ONE (06:42)
[2020-08-21] MEDS ORDERED: Promethazine HCl 25 MG/ML VIAL IM PRN ×2 (09:50→09:51)
[2020-08-21] MEDS ORDERED: Meperidine HCl/PF 25 MG/ML VIAL SLOW IVP PRN (09:50)
[2020-08-21] MEDS ORDERED: Ondansetron HCl/PF 4 MG/2 ML Vial IVP PRN ×2 (09:50→09:51)
[2020-08-21] MEDS ORDERED: Promethazine HCl 25 MG/ML VIAL SLOW IVP PRN ×2 (09:50→09:51)
[2020-08-21] MEDS ORDERED: PACU-Morphine 4MG/ML VIAL SLOW IVP PRN (09:51)
[2020-08-21] MEDS ORDERED: Lidocaine 1% PF 5 ML VIAL ONE (09:52)
[2020-08-21] MEDS ORDERED: Rocuronium Bromide 10 MG/ML (10ML VIAL) ONE (09:52)
[2020-08-21] MEDS ORDERED: PROPOFOL 200 MG/20 ML VIAL ONE (09:52)
[2020-08-21] MEDS ORDERED: Ketorolac Tromethamine 30 MG/ML VIAL ONE (09:52)
[2020-08-21] MEDS ORDERED: Metoclopramide HCl 10 MG/2 ML VIAL ONE (09:52)
[2020-08-21] MEDS ORDERED: Ondansetron PF 4 MG/2 ML Vial ONE (09:52)
[2020-08-21] MEDS ORDERED: diphenhydrAMINE 50 MG/ML VIAL IVP PRN (10:03)
[2020-08-21] MEDS ORDERED: Dextrose 50% Abboject 50 ML SYRINGE SLOW IVP PRN (10:03)
[2020-08-21] MEDS ORDERED: Morphine 4 MG/ML VIAL SLOW IVP PRN (10:03)
[2020-08-21] MEDS ORDERED: Dextrose 5% in Water 1,000 ML IV PRN (10:03)
[2020-08-21] MEDS ORDERED: HumaLOG 300 UNITS/3 ML VIAL SC PRN (10:03)
[2020-08-21] MEDS ORDERED: Morphine 2 MG/ML VIAL SLOW IVP PRN (10:03)
[2020-08-21] MEDS ORDERED: hydrALAZINE 20 MG/ML VIAL SLOW IVP PRN (10:03)
[2020-08-21] MEDS ORDERED: Cyclobenzaprine 10 MG TAB PO PRN ×2 (10:10→14:02)
[2020-08-21] MEDS ORDERED: HYDROmorphone 0.5 MG/0.5 ML SYRINGE ONE ×3 (10:31→11:22)
[2020-08-21] MEDS ORDERED: Acetaminophen 650 MG/20.3 ML UDCUP PO PRN (10:37)
[2020-08-21] MEDS ORDERED: Albuterol Sulfate 2.5 mg/3 ml Neb NEB PRN ×2 (10:41→13:57)
--- NOTE | 2020-08-21 10:41 | OP ---
DATE OF PROCEDURE: 08/21/2020 PREOPERATIVE DIAGNOSES: Morbid obesity, 251 pounds, 46 BMI; initially seen, preoperative weight 237 pounds, 43 BMI. COMORBIDITIES: Diabetes mellitus type 2, hypertension, GERD, chronic back pain. PROCEDURE PERFORMED: Laparoscopic Garrison-en-Y gastric bypass, antecolic, 25 mm EEA stapled anastomosis, gastrojejunostomy, closure of jejunal mesentery, reinforcement staple line used. DECK SCALER: Yasmine Branch, certified certified pathology assistant. ANESTHESIA: General anesthesia, local with 0.25% Marcaine 60 mL mixed with 1% Xylocaine with epinephrine 10 mL. DESCRIPTION OF PROCEDURE: The patient was taken to the operating room, where underwent general anesthesia, abdomen was prepared with ChloraPrep and draped in routine fashion. Pneumoperitoneum to 15 mmHg obtained with the Veress needle placing it through a supraumbilical midline incision, replaced with a 5 port laparoscope inserted. Bilateral midclavicular upper abdominal incision was made and a 15 mm port placed on the left and a 12 port placed on the right and bilateral far lateral subcostal incision made and 5 ports placed. Subxiphoid incision made. Amberly liver retractor held in place with Óscar's arm reflecting the left lobe of the liver cephalad. In the supine position, omentum taken down using the ligature to the transverse colon just to the left of the midline, just to the left of the falciform ligament. The ligament of Treitz identified and 20 cm from the ligament of Treitz small bowel divided with a PARVIN white load stapler and mesentery divided with a PARVIN white load stapler. Garrison limb measured to 100 cm and jejunojejunostomy anastomosis created with 3 fires of the PARVIN white load stapler initial fire creating anastomosis, 2 fires closing the common enterostomy and mesenteric defect closed with [id number] sutures of 3-0 Vicryl. The Garrison limb was then properly oriented and brought up cephalad. Patient was placed in reverse Trendelenburg and gastroesophageal ligament identified along the lesser curvature about 4 cm in the gastroesophageal ligament, mesentery taken down entering the lesser sac into the stomach of all tubes and initial blue load reinforced fire creating the initial transverse division and creation of gastric pouch. Opening made in the stomach along the greater curvature inferiorly and laterally to this, placed a 25 mm EEA stapler anvil and connected to a band passer, placing the band passer up along the initial transverse fire and making a small opening with a cutting current and advancing the anvil out the gastric pouch adjacent to the staple line. The gastrostomy was then closed with 2 fires of the blue load stapler. The stomach was then partitioned up towards the angle of His, then into the left angle of His preserving some small edge of the fundus to prevent encroachment on the esophagus. This was serially fired with blue load reinforced rajendra dividing the stomach completely. Once this was completed, the Garrison limb was brought out and antimesenteric defect created with a cutting current and a 25 mm EEA stapler placed through the left upper quadrant 15 mm port site, removing the port, advancing the EEA stapler into the small bowel and then advancing the post out the antimesenteric border of the Garrison limb and visualizing it laparoscopically. The post was then removed from the anvil and then these were mated, connected, approximated with a torque fire range and fired, loosened and removing 2 intact donuts. Staple line was intact and looked good. There was no tension. The ischemic portion of the small bowel, which had been devascularized initially with the LigaSure was divided with a PARVIN white load stapler, removing it through the 15 mm port site and discarding it. The gastrojejunostomy anastomosis was reinforced with interrupted Lembert sutures approximating the gastrojejunostomy with 3-0 Vicryl right posterolateral, left posterolateral, left anterolateral, and it was checked under water insufflating the gastric pouch through an OG tube with air under water and noting to be no leak while maintaining occlusion of the Garrison limb outflow with atraumatic bowel clamp. Once this was completed, OG tube was removed and good hemostasis noted. Amberly liver retractor removed. Liver was fatty and bulky, but malleable and not cirrhotic. Good hemostasis noted in all quadrants. Clips were used in some areas along the staple lines to achieve this. Irrigant and pneumoperitoneum evacuated. All instruments were removed after a 15 mm port site closed with GraNee needle, 0 Vicryl. This wound was then irrigated and all instruments removed and all skin incisions were approximated with interrupted subdermal 4-0 Monocryl and Caes[place] Head glue applied. Job ID: [id number]
[2020-08-21] MEDS: Ketorolac Tromethamine 30 MG/ML VIAL IVP SCH ×3 (12:53→23:31)
[2020-08-21] MEDS: 1/2 NS w/KCL 20 mEq 1,000 ML IV SCH ×2 (13:17→17:20)
[2020-08-21] MEDS ORDERED: Mometasone 200 MCG/Formoterol 5 MCG 120 PUFF INHALER INH PRN (14:00)
[2020-08-21] MEDS: Hydrocodone-Acetamin 15 ML UDCUP PO PRN ×2 (15:40→21:31)
[2020-08-21] MEDS: Ondansetron PF 4 MG/2 ML Vial IVP PRN ×2 (15:47→23:31)
[2020-08-21] MEDS: metFORMIN 500 MG TAB PO SCH (17:13)
[2020-08-21] MEDS: Mometasone 200 MCG/Formoterol 5 MCG 120 PUFF INHALER INH SCH (19:11)
[2020-08-21] MEDS ORDERED: Lisinopril 10 MG TAB PO SCH (21:00)
[2020-08-21] MEDS ORDERED: Simvastatin 10 MG TAB PO SCH (21:00)
[2020-08-21] MEDS ORDERED: traZODone HCl 150 MG TAB PO SCH ×2 (21:00)
[2020-08-21] MEDS ORDERED: Enoxaparin Sodium 40 MG/0.4 ML SYRINGE SC SCH (21:00)
[2020-08-21] MEDS: Lisinopril 10 MG TAB PO SCH (21:31)
[2020-08-21] MEDS: Calcium Carbonate 600 MG + Vit D TAB PO SCH (21:32)
[2020-08-22] MEDS: Hydrocodone-Acetamin 15 ML UDCUP PO PRN ×3 (02:04→13:53)
[2020-08-22] MEDS: 1/2 NS w/KCL 20 mEq 1,000 ML IV SCH ×2 (02:25→11:01)
[2020-08-22] MEDS: Ketorolac Tromethamine 30 MG/ML VIAL IVP SCH ×2 (05:34→10:59)
[2020-08-22 06:15] LABS: #Basophils 0.1 thou/uL (0.0-0.2); #Lymphocytes 3.6 thou/uL (1.20-3.40); #Monocytes 1.2 thou/uL (0.11-0.59); #Neutrophils 8.6 thou/uL (1.40-6.50); %Basophils 0.6 % (0.0-1.0); %Eosinophils 0.3 % (0.0-10.0); %Lymphocytes 26.7 % (21.0-51.0); %Neutrophils 63.4 % (42.0-75.0); Hemoglobin 9.9 g/dL (12.0-16.0); Mean Corpuscular HGB CONC 32.2 g/dL (32.0-36.0); Mean Corpuscular Hemoglobin 29.3 pg (27.0-31.0); Mean Corpuscular Volume 90.9 fL (78.0-98.0); Mean Platelet Volume 8.8 fL (7.4-10.4); Platelet Count 284 thou/uL (130-400); RBC Distribution Width 14.5 % (11.5-14.5); Red Blood Cell (RBC) Count 3.37 mill/uL (4.20-5.40); White Blood Cell (WBC) Count 13.6 thou/uL (4.8-10.8)
[2020-08-22 06:27] LABS: Anion Gap 12 mmol/L (10-20); BUN (Urea Nitrogen) 24 mg/dL (9.8-20.1); Calc. Creatinine Clearance 78 mL/min (70-130); Calcium 7.6 mg/dL (7.8-10.44); Carbon Dioxide 24 mmol/L (22-29); Chloride 104 mmol/L (98-107); Glucose 125 mg/dL (70-105); Potassium 4.7 mmol/L (3.5-5.1); Sodium 135 mmol/L (136-145)
[2020-08-22] MEDS: Mometasone 200 MCG/Formoterol 5 MCG 120 PUFF INHALER INH SCH (07:15)
[2020-08-22] MEDS ORDERED: Glimepiride 2 MG TAB PO SCH (07:30)
[2020-08-22] MEDS: metFORMIN 500 MG TAB PO SCH (08:18)
[2020-08-22] MEDS: Calcium Carbonate 600 MG + Vit D TAB PO SCH (08:18)
[2020-08-22] MEDS: Lisinopril 10 MG TAB PO SCH (08:19)
[2020-08-22] MEDS ORDERED: VICTOZA 0.6 MG/0.1 ML SC SCH (09:00)
[2020-08-22] MEDS ORDERED: Polyethylene Glycol 3350 17 GM Packet PO SCH (09:00)
[2020-08-22] MEDS ORDERED: Pantoprazole 40 MG VIAL IVP SCH (09:00)
[2020-08-22] MEDS ORDERED: Aspirin 81 mg Enteric Coated Tablet PO SCH (09:00)
[2020-08-22] MEDS ORDERED: Multivitamin W/ Minerals 1 TAB PO SCH (09:00)
[2020-08-22] MEDS ORDERED: Lactinex Tablet PO SCH (09:00)
--- NOTE | 2020-08-22 09:11 | PRG ---
DATE OF SERVICE: 08/22/2020 SUBJECTIVE: Dulce Ghosh is one day status post laparoscopic gastric bypass. 97.8 degrees, 64, 111/63. This morning, her hemoglobin was 9.9, down from preoperative 12. She complains of abdominal pain but seems to be improving. She is tolerating liquids. She is urinating. OBJECTIVE: LUNGS: Clear to auscultation. CARDIAC: Regular rate and rhythm without murmur or gallop. ABDOMEN: Soft. Laparoscopic wounds look good. Bowel sounds present. Mild postoperative tenderness, difficult to discern. EXTREMITIES: Unremarkable. ASSESSMENT AND PLAN: Doing well. We will check her hemoglobin later this morning. Consider discharge later this morning pending clinical course. We will see how she does over the morning. Recheck her labs later this morning at 11 a.m. Job ID: [id number]
[2020-08-22] MEDS: Ondansetron PF 4 MG/2 ML Vial IVP PRN (10:56)
[2020-08-22 11:49] LABS: #Basophils 0.1 thou/uL (0.0-0.2); #Eosinphils 0.1 thou/uL (0.0-0.7); #Lymphocytes 2.5 thou/uL (1.20-3.40); #Monocytes 1.2 thou/uL (0.11-0.59); #Neutrophils 9.7 thou/uL (1.40-6.50); %Basophils 0.4 % (0.0-1.0); %Eosinophils 0.5 % (0.0-10.0); %Lymphocytes 18.7 % (21.0-51.0); %Monocytes 9.2 % (0.0-10.0); %Neutrophils 71.2 % (42.0-75.0); Hemoglobin 9.9 g/dL (12.0-16.0); Mean Corpuscular HGB CONC 32.2 g/dL (32.0-36.0); Mean Corpuscular Hemoglobin 29.5 pg (27.0-31.0); Mean Corpuscular Volume 91.7 fL (78.0-98.0); Mean Platelet Volume 8.9 fL (7.4-10.4); Platelet Count 278 thou/uL (130-400); RBC Distribution Width 14.5 % (11.5-14.5); Red Blood Cell (RBC) Count 3.34 mill/uL (4.20-5.40); White Blood Cell (WBC) Count 13.6 thou/uL (4.8-10.8)
[2020-08-22 12:04] VITALS: BP 122/71; TEMP 97.9
--- NOTE | 2020-08-22 18:00 | DIS ---
DATE OF ADMISSION: 08/21/2020 DATE OF DISCHARGE: 08/22/2020 DISCHARGE DIAGNOSES: Morbid obesity, gastroesophageal reflux disease, laparoscopic Garrison-en-Y gastric bypass this hospitalization. 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 PROCEDURES AND HOSPITALIZATION: Laparoscopic Garrison-en-Y gastric bypass. Discharge hemoglobin 9.9. HISTORY: 59-year-old female, completing our bariatric protocol evaluation and admitted for gastric bypass, which she underwent and did well. Postoperatively, she was taking Tylenol medications, bariatric liquids. Activity as tolerated without restrictions, bariatric liquids, advance per protocol. Job ID: [id number]
== END 2020-08-22 15:00 | disposition home or self-care (01) | DRG 620 ==
LOC: SURG A 08-21 05:59
PROVIDERS: ADMIT Specialist; ATTEND Specialist
PROC: 0D164ZA Bypass Stomach to Jejunum, Percutaneous Endoscopic Approach (ICD-10-PCS; principal; 2020-08-21)
DX: E66.01 Morbid (severe) obesity due to excess calories (principal); F33.1 Major depressive disorder, recurrent, moderate; Z20.828 Contact with and (suspected) exposure to other viral communicable diseases; K21.9 Gastro-esophageal reflux disease without esophagitis; D50.9 Iron deficiency anemia, unspecified; D72.829 Elevated white blood cell count, unspecified; E11.65 Type 2 diabetes mellitus with hyperglycemia; E78.5 Hyperlipidemia, unspecified; F17.210 Nicotine dependence, cigarettes, uncomplicated; F41.9 Anxiety disorder, unspecified; G62.9 Polyneuropathy, unspecified; I10 Essential (primary) hypertension; E78.00 Pure hypercholesterolemia, unspecified; M54.5 Low back pain; G89.29 Other chronic pain; M25.561 Pain in right knee; M19.90 Unspecified osteoarthritis, unspecified site; G43.909 Migraine, unspecified, not intractable, without status migrainosus; J44.9 Chronic obstructive pulmonary disease, unspecified; Z79.51 Long term (current) use of inhaled steroids; Z79.82 Long term (current) use of aspirin; Z79.84 Long term (current) use of oral hypoglycemic drugs; Z87.898 Personal history of other specified conditions; Z68.41 Body mass index [BMI] 40.0-44.9, adult; Z90.49 Acquired absence of other specified parts of digestive tract; Z98.890 Other specified postprocedural states
CPT/HCPCS: 36415; 36416; 80048; 85025; C9113; J0690; J1170; J1644; J1650; J1885; J2270; J2370; J2405; J2704; J2765; J3010; J3480; S0020; S0028

== ENCOUNTER 2020-08-24 18:56 | Inpatient (IN) | payer MEDICARE ==
[~2020-08-24 18:56] MED LIST changes: -ISOVUE-370 76%-LOCM 1 ML ONE; +Iopamidol-370 76% 500 ML 1 ML ONE
[2020-08-24 19:33] LABS: #Basophils 0.1 thou/uL (0.0-0.2); #Lymphocytes 1.9 thou/uL (1.20-3.40); #Neutrophils 9.6 thou/uL (1.40-6.50); %Basophils 0.6 % (0.0-1.0); %Eosinophils 0.3 % (0.0-10.0); %Lymphocytes 14.8 % (21.0-51.0); %Monocytes 7.9 % (0.0-10.0); %Neutrophils 76.4 % (42.0-75.0); Hemoglobin 11.7 g/dL (12.0-16.0); Mean Corpuscular HGB CONC 31.6 g/dL (32.0-36.0); Mean Corpuscular Hemoglobin 28.8 pg (27.0-31.0); Mean Corpuscular Volume 91.3 fL (78.0-98.0); Mean Platelet Volume 8.4 fL (7.4-10.4); Platelet Count 369 thou/uL (130-400); RBC Distribution Width 14.4 % (11.5-14.5); Red Blood Cell (RBC) Count 4.06 mill/uL (4.20-5.40); White Blood Cell (WBC) Count 12.5 thou/uL (4.8-10.8)
[2020-08-24 19:44] LABS: BHCG - Serum Negative (NEGATIVE); Pregs Control Background? CLEAR/WHITE (CLR/WHITE); Pregs Control Bar Appear? YES (CONTROL BAR)
[2020-08-24 19:52] LABS: ALT (SGPT) 14 U/L (8-55); AST (SGOT) 12 U/L (5-34); Albumin 3.8 g/dL (3.5-5.0); Alkaline Phosphatase 93 U/L (40-110); Anion Gap 14 mmol/L (10-20); BUN (Urea Nitrogen) 20 mg/dL (9.8-20.1); Bilirubin, Total 0.3 mg/dL (0.2-1.2); Calc. Creatinine Clearance 0 mL/min (70-130); Carbon Dioxide 25 mmol/L (22-29); Chloride 101 mmol/L (98-107); Globulin 3.7 g/dL (2.4-3.5); Glucose 122 mg/dL (70-105); Lipase 9 U/L (8-78); Potassium 4.8 mmol/L (3.5-5.1); Protein, Total 7.5 g/dL (6.0-8.3); Sodium 135 mmol/L (136-145)
[2020-08-24 20:12] LABS: Bacteria/HPF None Seen HPF (None Seen); Bilirubin Negative (Negative); Blood, Urine Trace (Negative); Clarity Clear (Clear); Glucose, Urine (Dipstick) 50 mg/dL (Negative); Ketone, Urine 20 mg/dL (Negative); Leukocyte Negative Leu/uL (Negative); Nitrite Negative (Negative); Protein, Urine (Dipstick) 600 mg/dL (Neg-Trace); RBC/HPF 0-3 HPF (0-3); Squamous Epithelial 0-3 HPF (0-3); Urobilinogen Normal mg/dL (Less than 2); WBC/HPF 0-3 HPF (0-3); pH, Urine 6.5 (5.0-9.0)
[2020-08-24] MEDS ORDERED: Morphine 4 MG/ML VIAL ONE (20:26)
[2020-08-24] MEDS ORDERED: Ondansetron PF 4 MG/2 ML Vial ONE (20:26)
[2020-08-24] MEDS ORDERED: Fentanyl 100 MCG/2 ML VIAL ONE (20:32)
--- NOTE | 2020-08-24 22:20 | CT ---
CT ABDOMEN AND PELVIS WITH IV CONTRAST 08/24/2020 CLINICAL INFORMATION: Patient is post gastric bypass on Friday. Patient now has abdominal pain and unable to keep liquids d own. COMPARISON: 05/10/2018 and CTA abdomen on 01/10/2020 Technique: Multiple contiguous axial CT images are obtained through the abdomen and pelvis with IV contrast. Cor onal reformatted images are provided. FINDINGS: Lower Chest: There is minimal atelectasis left lung base. Vessels: Calcifications are seen in the coronary arteries as well as in the abdominal aorta and iliac arteries. Abdomen: Portal vein:Patent Gallbladder: Surgically absent. Liver: within normal limits. Spleen: within normal limits. Pancreas: within normal limits. Adrenals: A right adrenal nodule measuring 1.5 cm is again seen. This is stable in size compared to wilberto nance on 01/10/2020. Left adrenal gland has a normal CT appearance. Kidneys: Subcentimeter too small to characterize hypodense lesion right kidney. Right kidney is mildl y rotated. Low-density lesion is again seen in the midportion left kidney and is likely related to a renal cyst.. Bowel: Interval postoperative changes related to gastric bypass procedure. Contrast is seen in the di stal esophagus. Most proximal loops of small bowel beginning at the level of the gastroenteric anastomosis and extending to the jejunal anastomosis are dilated measuring up to 4.4 cm. Feculent typ e material is seen in a few of these dilated loops of small bowel. Findings are suggestive of a partial small bowel obstruction. Remaining loops of small bowel distal to the small bowel anastomosis are normal in caliber. Mild haziness of the mesentery in the region of dilated loops of small bowel are seen. Related to mild mesenteric edema. Small amount retained fecal material is seen throughout the colon. A few scattered colonic diverticul i are present. Appendix: The appendix is visualized and normal in caliber. Peritoneum: No fluid collection or free intraperitoneal gas is seen in the abdomen or pelvis. Mesentery and Retroperitoneum: No enlarged mesenteric or retroperitoneal lymph nodes. Abdominal Wall: Inflammatory stranding and subcutaneous gas are present in the anterior abdominal wal l likely related to recent postoperative changes. Pelvis: Reproductive Organs: No pelvic masses. Bladder: within normal limits. Bones: Multilevel degenerative changes present. IMPRESSION: 1. Postoperative changes related to gastric bypass procedure. There is dilatation of proximal jejunum beginning at the level of the gastrojejunal anastomosis and extending to the jejunal anastomosis with feculent type material seen in portions of the dilated loops of small bowel. 2. Indeterminate right adrenal nodule also seen on study of 01/10/2020. Follow-up evaluation with none mergent MRI or CT scan following adrenal mass protocol is recommended for further evaluation. 3. Postoperative changes anterior abdominal wall. 4. Above findings discussed with DEANNA Jin in the emergency department on 08/24/2020 at 2214 h ours.
[2020-08-24] MEDS ORDERED: Pantoprazole 40 MG VIAL ONE (22:45)
[2020-08-25] MEDS ORDERED: Ondansetron PF 4 MG/2 ML Vial ONE (00:18)
[2020-08-25 02:16] VITALS: BMI 42.0
[2020-08-25] MEDS ORDERED: Ondansetron PF 4 MG/2 ML Vial IVP PRN (02:23)
[2020-08-25] MEDS ORDERED: Sodium Chloride 0.9% 1,000 ML IV SCH (02:30)
[2020-08-25] MEDS: Fentanyl 100 MCG/2 ML VIAL SLOW IVP PRN ×5 (02:45→19:53)
[2020-08-25] MEDS ORDERED: Fentanyl 100 MCG/2 ML VIAL SLOW IVP PRN (08:46)
[2020-08-25] MEDS ORDERED: Dextrose 50% Abboject 50 ML SYRINGE SLOW IVP PRN (08:47)
[2020-08-25] MEDS ORDERED: Dextrose 5% in Water 1,000 ML IV PRN (08:47)
[2020-08-25] MEDS ORDERED: HumaLOG 300 UNITS/3 ML VIAL SC PRN (08:47)
[2020-08-25] MEDS ORDERED: Non-Formulary Item 1 EACH (Albuterol Sulfate [Albuterol Sulfate Hfa] 8.5 GM Hfa.Aer.Ad) IH PRN (08:48)
[2020-08-25] MEDS ORDERED: Non-Formulary Item 1 EACH (Budesonide-Formoterol [Symbicort 160-4.5] 160 MG/4.5 MG Aer) INH PRN (08:48)
[2020-08-25] MEDS ORDERED: Mometasone 200 MCG/Formoterol 5 MCG 120 PUFF INHALER INH PRN (08:57)
[2020-08-25] MEDS ORDERED: PROVENTIL INHALER 6.7 G (200 INHALATIONS) INH PRN ×2 (08:58→09:00)
[2020-08-25] MEDS ORDERED: Non-Formulary Item 1 EACH (Lisinopril [Lisinopril] 40 MG Tablet) PO SCH (09:00)
--- NOTE | 2020-08-25 09:29 | HP ---
CHIEF COMPLAINT: Nausea, vomiting after gastric bypass. HISTORY OF PRESENT ILLNESS: This is a 59-year-old female, who is status post Garrison-en-Y gastric bypass by Dr. Lopez on Friday. She did well the first 48 hours with clear liquids. She advanced to fulls and started to have vomiting and since then, she is not able to even keep down any clear liquids. Seen in emergency department last night where she felt better with some IV fluids. CT scan showed very significant dilation of her Garrison limb and question of partial obstruction at her jejunojejunostomy. The patient has no pain. No fever, chills, and her nausea has resolved. PAST MEDICAL HISTORY: Includes hypertension, diabetes, hyperlipidemia, GERD, chronic back pain with neuropathy, depression. PAST SURGICAL HISTORY: Includes carpal tunnel, lap blanca. MEDICINES: See long list. ALLERGIES: SHELLFISH, PREDNISONE. REVIEW OF SYSTEMS: Ten-system review of systems is otherwise negative. PHYSICAL EXAMINATION: VITAL SIGNS: Blood pressure 133/72, pulse 80, respirations 16. She is afebrile. CHEST: Clear. HEART: Regular rate. ABDOMEN: Soft. Appropriately tender. Wounds are healing well. LABORATORY DATA: Blood cell count is 12, hemoglobin 11, platelet counts normal. Sodium 135, potassium 4.8, creatinine normal. Lipase normal. UA is negative except for trace blood, trace ketones, trace protein. CT scan as above. ASSESSMENT: Postoperative gastric bypass with dilation of Garrison limb postop and nausea, vomiting. PLAN: We will allow just ice chips today. I suspect this is normal postop swelling. Formal swallow eval tomorrow. She will be ready to advance back to her liquid diet at that point. Job ID: [id number]
[2020-08-25] MEDS: Pantoprazole 40 MG VIAL IVP SCH (11:15)
[2020-08-25] MEDS: Lisinopril 10 MG TAB PO SCH ×2 (11:15→19:52)
[2020-08-25] MEDS: Ondansetron PF 4 MG/2 ML Vial IVP PRN ×2 (11:15→19:53)
[2020-08-25] MEDS: Sodium Chloride 0.9% 1,000 ML IV SCH ×2 (17:52)
[2020-08-25] MEDS: traZODone HCl 150 MG TAB PO SCH (19:52)
[2020-08-25] MEDS ORDERED: Non-Formulary Item 1 EACH (Trazodone Hcl [Trazodone Hcl] 100 MG Tab) PO SCH (21:00)
[2020-08-26] MEDS: Sodium Chloride 0.9% 1,000 ML IV SCH ×3 (03:19→16:19)
[2020-08-26] MEDS: Fentanyl 100 MCG/2 ML VIAL SLOW IVP PRN ×6 (03:31→18:09)
[2020-08-26] MEDS: Ondansetron PF 4 MG/2 ML Vial IVP PRN ×3 (03:32→22:37)
[2020-08-26] MEDS: D5 1/2 NS w/20 mEq KCL 1,000 ML IV SCH ×2 (06:13→14:37)
[2020-08-26] MEDS: Lisinopril 10 MG TAB PO SCH ×2 (08:49→20:43)
[2020-08-26] MEDS: Pantoprazole 40 MG VIAL IVP SCH (08:49)
--- NOTE | 2020-08-26 08:59 | PRG ---
DATE OF SERVICE: 08/26/2020 SUBJECTIVE: Ms. Ghosh is hiccuping, but has no nausea. OBJECTIVE: VITAL SIGNS: Afebrile. Vital signs are stable. ABDOMEN: Soft, minimally distended, minimally tender. Incisions are healing well. ASSESSMENT: Garrison limb, obstruction of jejunojejunostomy, likely postop swelling. PLAN: Gastrografin swallow today to further assess if this is a complete obstruction, probably endoscopy would be the next step versus just watchful waiting. Job ID: [id number]
--- NOTE | 2020-08-26 10:31 | RAD ---
Upper GI HISTORY: Possible obstruction. Recent bariatric procedure. FINDINGS: Gastrografin contrast was given. Postoperative changes consistent with recent Garrison-en-Y pro cedure. Mildly dilated loop of proximal jejunum, just beyond the gastrojejunal anastomosis, showed hyperperistalsis early in the procedure. At 5 minutes, the contrast had passed into the nondilated mid to distal jejunum. No evidence of leak. IMPRESSION : No obstruction.
[2020-08-26] MEDS: traZODone HCl 150 MG TAB PO SCH (20:43)
[2020-08-26] MEDS: Hydrocodone-Acetamin 15 ML UDCUP PO PRN (20:44)
[2020-08-27] MEDS: Hydrocodone-Acetamin 15 ML UDCUP PO PRN ×5 (00:56→20:04)
[2020-08-27] MEDS: D5 1/2 NS w/20 mEq KCL 1,000 ML IV SCH ×3 (00:57→23:38)
[2020-08-27] MEDS: Sodium Chloride 0.9% 1,000 ML IV SCH (01:06)
[2020-08-27] MEDS: Lisinopril 10 MG TAB PO SCH ×2 (08:14→20:03)
[2020-08-27] MEDS: Pantoprazole 40 MG VIAL IVP SCH (08:15)
[2020-08-27] MEDS: Ondansetron PF 4 MG/2 ML Vial IVP PRN ×2 (08:15→13:32)
--- NOTE | 2020-08-27 08:36 | PRG ---
DATE OF SERVICE: 08/27/2020 SUBJECTIVE: Ms. Ghosh has no complaints. She feels hiccuped a little bit overnight with a clear liquid diet. This morning, she feels good. She is up and around. OBJECTIVE: VITAL SIGNS: She is afebrile. Vital signs are stable. ABDOMEN: Soft. Incisions were appropriately tender. There is no infection. Sugars are in the 70s to 120s. ASSESSMENT: Status post gastric bypass with delayed Garrison-Y emptying, although Gastrografin swallow yesterday was normal. PLAN: Decrease IV fluids. Continue clear liquids. Suspect she will be ready to go home tomorrow. Job ID: [id number]
[2020-08-27] MEDS: traZODone HCl 150 MG TAB PO SCH (20:04)
[2020-08-28] MEDS: Hydrocodone-Acetamin 15 ML UDCUP PO PRN ×5 (00:02→17:10)
[2020-08-28] MEDS: Ondansetron PF 4 MG/2 ML Vial IVP PRN ×3 (00:02→15:57)
[2020-08-28] MEDS: Pantoprazole 40 MG VIAL IVP SCH (07:53)
[2020-08-28] MEDS: Lisinopril 10 MG TAB PO SCH (07:53)
--- NOTE | 2020-08-28 12:38 | PRG ---
DATE OF SERVICE: 08/28/2020 SUBJECTIVE: Ms. Ghosh is doing well today. She is tolerating her liquids. She states she had some nausea last night when she took some pills, another time when she did incentive spirometer. She is having some thickened phlegm. She has ceased smoking since her gastric bypass as promise. She is tolerating liquids. IV fluid, 75 an hour. OBJECTIVE: VITAL SIGNS: 98.3 degrees, 60, 124/77. LUNGS: Clear to auscultation. CARDIAC: Regular rate and rhythm without murmur or gallop. ABDOMEN: Soft, nontender. Laparoscopic wounds well healed. She is having some flatus and bowel movements. LABORATORY: None today. Accu-Cheks 114-134. ASSESSMENT AND PLAN: She is doing well. At this point, we will plan discharge home later this afternoon. We will refill her Lortab Elixir. I have encouraged her not to take this if she does not need it. She has Zofran at home to use as needed. She will follow up in my office in a week or 2. Job ID: [id number]
[2020-08-28] MEDS: D5 1/2 NS w/20 mEq KCL 1,000 ML IV SCH (13:25)
--- NOTE | 2020-08-28 14:18 | DIS ---
DATE OF ADMISSION: 08/26/2020 DATE OF DISCHARGE: 08/28/2020 DIAGNOSES: Status post laparoscopic Garrison-en-Y gastric bypass, 100 cm antecolic Garrison limb for morbid obesity and reflux, surgery performed 08/21/2020. The patient went home 08/22/2020. She was readmitted 08/24/[address] Day, who in coverage. HOSPITAL COURSE: The patient was having nausea, 1 episode of vomiting, but she states that she was taking pills. She could not hold down liquids. She was seen in the emergency room, felt better with IV fluids. CAT scan showed dilatation of her Garrison limb. She was admitted for IV fluids, observation. She underwent a small bowel upper GI series on 08/26/2020, that revealed the contrast to pass without problems into nondilated mid to distal jejunum. She is tolerating her liquids and she has been discharged home to resume her home medications with followup in my office in 1 to 2 weeks. Encouraged to be active. Job ID: [id number]
[2020-08-28 17:09] VITALS: BP 118/73; TEMP 97.2
== END 2020-08-28 18:06 | disposition home or self-care (01) | DRG 389 ==
LOC: ERS 18:56 → SURG A 22:38 → OBSVTOIN 08-26 13:46
PROVIDERS: ADMIT Surgery; ATTEND Surgery
DX: K91.31 Postprocedural partial intestinal obstruction (principal); Z68.41 Body mass index [BMI] 40.0-44.9, adult; Y84.8 Other medical procedures as the cause of abnormal reaction of the patient, or of later complication, without mention of misadventure at the time of the procedure; Z20.822 Contact with and (suspected) exposure to COVID-19; I10 Essential (primary) hypertension; M54.9 Dorsalgia, unspecified; E78.5 Hyperlipidemia, unspecified; E11.9 Type 2 diabetes mellitus without complications; K21.9 Gastro-esophageal reflux disease without esophagitis; G89.29 Other chronic pain; F41.9 Anxiety disorder, unspecified; F32.9 Major depressive disorder, single episode, unspecified; F17.210 Nicotine dependence, cigarettes, uncomplicated; E66.01 Morbid (severe) obesity due to excess calories; Z88.8 Allergy status to other drugs, medicaments and biological substances; Z91.013 Allergy to seafood; Z90.49 Acquired absence of other specified parts of digestive tract
CPT/HCPCS: 36415; 36416; 74177; 74240; 80053; 81003; 81015; 83690; 84703; 85025; 96361; 96374; 96375; 96376; C9113; G0378; J2270; J2405; J3010; J3480; Q9967